=== PATIENT | female | born 1990 | race Caucasian/White ===

== ENCOUNTER 2020-07-03 14:00 | Outpatient (RCR) | payer MEDICAID, SELFPAY ==
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
--- NOTE | 2020-07-03 14:40 | BH.MDN_ITS ---
Multi-Disciplinary Note - Note 60-min Individual Time Started:: 14:00 Date: 07/03/20 Purpose of session/treatment goals addressed:: The purpose of this session was to gather information on client's current stressors, symptoms, and treatment goals. Another goal was to build rapport and provide psychoeducation. Symptoms/Behavior:: This counseling session was provided via telehealth using two-way, real-time interactive telecommunication technology between the patient and the clinician. The interactive telecommunication technology included audio and video. The patient was offered telehealth as an option for care delivery du ring the COVID-19 pandemic and consented to this option. Patient location: [place]. Provider located at [facility] Eye Contact:: Good - tearful at times throughout Motor Activity:: Appropriate Appearance:: Disheveled, Casual Speech:: Appropriate Mood:: Anxious, Depressed Affect:: Congruent Thoughts:: Linear, Logical, No evidence of hallucinations/delusions noted Staff Interventions:: Therapist used active listening and open-ended questions to explore client's current stressors, symptoms, mh treatment history, and explore treatment goals. Therapist used strengths based approaches to build rapport and provide emotional support. Therapist provided psychoeducation on how intrusive thoughts can impact mental health sx. Therapist gave client encouragement and normalized the impact of mental health has on daily functioning. Client Response:: Client responded well to session, open to meeting with therapist and discussing mental health symptoms and stressors leading to IOP admission. Client stated she referred herself to the program as a result of increased symptoms of anxiety and depression, as well as experiencing an increase in frequency and intensity of visual, auditory, and tactile hallucinations. Notes the hallucinations are not command in nature but often impede her ability to function at baseline as she can focus on nothing else when experiencing them. Shared having a previous diagnosis of schizophrenia but is unsure as to the validity of this diagnosis and would like to have the program psychiatrist further assess. 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 Noted she had been fired because she was experiencing seizures at work and was unable to perform the duties of her job as a result. Expressed her seizures have been steadily worsening as she continues to struggle with increased anxiety and stress. Client notes that her current symptoms include her mother?s health, the loss of her job, finances, and the upcoming anniversary of her grandfather?s . At time of session, client identified current symptoms to include feeling depressed with occasional hopelessness, isolation, no motivation, decreased sleep, low energy, decreased concentration, feeling guilty, passive thoughts that she would not care if she , increased hallucinations, increased rumination, daily panic attacks, and PTSD sx. Client reported inability to complete ADLs and take care of herself at her baseline since the increase in sx. Client identified her treatment goals to be: deal with symptoms, improve daily functioning, improve independence Risks/Concerns:: Client reports passive thoughts of though denies any active suicidal ideations, plan, and intent as of 07/03/20. Protective factors include family, children, and goals for her future. Reports motivation to get better. Progress Toward Goals/Plan:: Client's first week of IOP, reports she is trying to be more comfortable in the treatment environment. She reports enjoying group so far and is hopeful that she will be able to engage more as she spends more ti me in the group setting and is able to better manage hallucinations which impact ability to focus. Client endorses a depressed mood, anhedonia, decreased sleep, low self-esteem, ruminations, hallucination, and constantly feeling anxious. Client's symptoms have been impacting her ability to function at baseline, complete daily tasks and responsibilities, and ability to engage with others. Will continue IOP tx to prevent decompensation, reduce intensity of symptoms, and improve daily functioning. Time Stopped:: 15:14
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
--- NOTE | 2020-07-04 11:15 | BH.SGPN.GN ---
This psychotherapy group was provided via telehealth using two-way, real-time interactive telecommunication technology between the patients and the provider.?The interactive telecommunication technology included audio and video.? ?The patient was offered telemedicine as an option for care delivery during the COVID-19 pandemic and consented to this option. ?Patient location: [place] ?Provider located at [facility] Behaviors/Verbalizations/Mental Status: []Client alert and oriented, neatly dressed and groomed. Eye contact good. Motor activity appropriate. Speech within normal limits. Affect flat and tearful, mood anxious and depressed. Thoughts linear, logical, no signs of hallucinations or delusions. Client Response/Progress/Benefit: []Client responded well to session, connecting with the topic and engaged in discussion. Client attentive during psychoeducation on the change process and able to identify different emotions in each stage of change. Client identified a change she would like to make to improve her mental health which was to ?accepting myself and know I have stuff to work on.? Client shared she wants to work on this as client believes it will reduce depression and self-judgement. Client reports belief she is currently in the action stage because client has reached out for help to better understand her mental health diagnosis. Client shared the barrier to acceptance will be negative self-talk. Client?s goal today is to say at least one positive affirmation to combat negative self-talk. Appeared to benefit from identifying what stage of change client is in and setting a small goal to promote that change. First week of IOP tx. Will continue IOP to prevent decompensation, maintain safety, and increase self-compassion. Narrative Note: []
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
--- NOTE | 2020-07-04 13:18 | BH.DR.ITP ---
Initial Treatment Plan - Patient Information Visit Information: ADMISSION DATE: EXPECTED LOS: 4-6 weeks - Problems/Symptoms Problem #1:: Depression Symptom:: Sadness, anhedonia, apathy, decreased energy, decreased concentration, passive thoughts of Problem #2:: Anxiety Symptom:: Worry, panic attacks, obsessions Problem #3:: Hallucinations Symptom:: Auditory , tactile hallucinations
--- NOTE | 2020-07-05 09:05 | BH.SGPN.GN ---
This psychotherapy group was provided via telehealth using two-way, real-time interactive telecommunication technology between the patients and the provider. The interactive telecommunication technology included audio and video. The patient was offered telemedicine as an option for care delivery during the COVID-19 pandemic and consented to this option. Patient location: [place] Provider located at [facility] Behaviors/Verbalizations/Mental Status: []Client alert and oriented, casual dress, hygiene tended to. Eye contact good. Motor activity appropriate. Speech within normal limits. Affect constricted, mood anxious. Thoughts linear, logical, no signs of hallucinations or delusions. Reviewed client?s symptom tracker, pt denies current suicidal thoughts or intention to date. Client Response/Progress/Benefit: []Client responded well to session, attentive and contributing to discussion. Client reports feeling anxious this morning. Client shared she has a dentist appointment and the dentist is historically a trigger for client. Client identified coping skills she can use to manage anxiety prior to her appointment which included: deep breathing, counting, and visualizations. Client stated she is also working on picking and choosing her battles and sitting with uncomfortable feelings. Appeared to benefit from reviewing healthy coping skills and giving herself credit. Will continue IOP tx to prevent decompensation, reduce negative self-talk, and improve emotional regulation skills. Narrative Note: []
--- NOTE | 2020-07-05 10:20 | BH.SGPN.GN ---
This psychotherapy group was provided via telehealth using two-way, real-time interactive telecommunication technology between the patients and the provider. The interactive telecommunication technology included audio and video. The patient was offered telemedicine as an option for care delivery during the COVID-19 pandemic and consented to this option. Patient location: [place] Provider located at [facility] Behaviors/Verbalizations/Mental Status: []Client alert and oriented, casually dressed. Eye contact good. Motor activity appropriate. Speech within normal limits. Affect congruent, mood anxious. Thoughts linear, logical, no signs of hallucinations or delusions. Client Response/Progress/Benefit: []Client responded well to group and actively engaged throughout the session. Client provided input as the group brainstormed positive and negative aspects of stress on physical and mental health. Client agreed with the session?s quote and stated that it is difficult to know which coping skills to use when stress occurs. Client noted that habits, lack of awareness, learned behavior, and environment are barriers to impacting our ability to cope with stress. Client identified her current stressors as election/media, decreased sleep and mental health, finances, family, physical health, transportation, medications, isolation and loneliness, and lack of self-acceptance. Progress was noted as client understood that coping skills are impacted from levels of stress. Client will continue IOP to prevent decompensation, reduce isolation, and improve daily functioning. Narrative Note: []
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
--- NOTE | 2020-07-09 10:15 | BH.SGPN.GN ---
This psychotherapy group was provided via telehealth using two-way, real-time interactive telecommunication technology between the patients and the provider. The interactive telecommunication technology included audio and video. The patient was offered telemedicine as an option for care delivery during the COVID-19 pandemic and consented to this option. Patient location: [place] Provider located at [facility] Behaviors/Verbalizations/Mental Status: []Client alert and oriented, casually dressed. Eye contact fair. Motor activity appropriate. Speech within normal limits. Affect flat, mood dysthymic. Thoughts linear, logical, no signs of hallucinations or delusions. Client Response/Progress/Benefit: []Client engaged throughout session AEB participating in worksheet activity and frequently nodding during discussion. Connected with discussion on how coping with external crises by using unhealthy coping skills could result in a personal crisis. Group reported that it is important to have awareness of warning signs which can prevent reaching crisis point. Group identified warning signs for crisis and client completed the personal warning signs worksheet. Client identified personal crisis warning signs to include: racing thoughts, loss of interest, and lack of motivation. Client reported another warning sign for her is catastrophizing thinking and ?my problems compounding.? Benefited by increasing awareness of crisis and personal warning signs. Progress noted in client?s consistent attendance. Will continue IOP tx to prevent decompensation, increase emotional regulation skills, and reduce negative thinking. Narrative Note: []
--- NOTE | 2020-07-09 12:00 | PCM.BH.PN_ITS ---
Progress Note Progress Note: History of Present Illness/Interim History: [] Patient is a 29-year-old female who is seen in follow-up at the [facility] behavioral health IOP program. She has a history of schizophrenia, OCD and depression. Last week I increased her Zyprexa dose up to 5 mg daily. The patient said says that she is tolerating the increase in Zyprexa well. She feels that she is improving slowly. She has much less anxiety now since increasing the Zyprexa. She was having panic attacks several times a day and that has decreased now to only 3 panic attacks in the last week. Her hallucination of voices and visual however have stayed the same. She does still admit to being somewhat depressed and having passive thoughts that she would not care if she . She denies active suicidal ideation or plan for suicide. She denies homicidal ideation. Her related hallucinations remain the same which involve tactile hallucinations of bugs on her skin, auditory hallucinations of people talking outside her window at night and occasional visible visual hallucinations of her father at night. Current Psychiatric Medications: [] Zyprexa 5 mg p.o. nightly (increased to 5 mg 1 week ago); Klonopin 0.5 mg p.o. 3 times daily; Tegretol 100 mg p.o. twice daily; Prozac 20 mg p.o. daily; propranolol 10 mg p.o. 3 times daily. Mental Status Examination: [] Patient is seen by telehealth and is casually dressed and groomed with good hygiene. She has no psychomotor agitation or retardation. She is somewhat depressed with tears at times. Speech is normal rate and rhythm and fluent with no pressure. Eye contact is good. Thought processes organized and goal-directed. Thought content: There is evidence of longstanding mostly auditory hallucinations and tactile hallucination of bugs on her skin. No evidence of suicidal or homicidal ideation or plan. There is evidence of passive thoughts that she would not care if she . Judgment is intact. Insight: Improving. Impulsivity: Moderate. Diagnoses: [] Orient I: [] Schizophrenia; OCD; major depressive disorder, recurrent, severe wi thout psychosis; PTSD; THC use disorder; history of polysubstance abuse; rule out pseudoseizure versus epileptic seizure Orient II: [] Borderline traits Orient III: [] See above Orient IV:[]] Primary support, work and financial issues. Plan: [] The patient will continue the IOP program at [facility] as the structure, support, education, individual and group therapy will hopefully prevent worsening of her symptoms which might require hospitalization. The risks, options, possible complications and side effects of the medication were discussed again with the patient and she understands and accepts these. She felt safe during the interview and if at any time she does not feel safe she will let us know or go to the emergency room. The patient agrees to increase her Zyprexa to 7.5 mg total p.o. nightly daily. She understands that this medicine will help her anxiety and hopefully decrease her hallucinations. I will see the patient in follow-up in 1 to 2 weeks. She will also continue to follow-up with her outpatient providers.
--- NOTE | 2020-07-11 09:05 | BH.SGPN.GN ---
This psychotherapy group was provided via telehealth using two-way, real-time interactive telecommunication technology between the patients and the provider. The interactive telecommunication technology included audio and video. The patient was offered telemedicine as an option for care delivery during the COVID-19 pandemic and consented to this option. Patient location: [place] Provider located at [facility] Behaviors/Verbalizations/Mental Status: [] Client alert and oriented, casually dressed and groomed. Eye contact good. Motor activity appropriate. Speech within normal limits. Affect congruent, mood dysthymic and anxious. Thoughts linear, logical, no signs of hallucinations or delusions. Reviewed client?s symptom tracker, no risk for suicidal ideation, plan, or intent as of 07/11/20. Client Response/Progress/Benefit: [] Pt responded well to session, actively listening throughout and openly processed with group. Pt reports feeling a rollercoaster of emotions this morning. Indicated this is due to ongoing issues regarding stress related seizures in which pt has been struggling to accept are not due to an underlying physical issue. Discussed that she has been working to remind herself that just because the seizures are not due to a medical condition, it does not mean she caused them. Expressed practicing self-compassion in moments in which she is struggling and reminding herself that continuing to work on her mental health needs will not only help her improve mentally but could also improve her physical health as well. Did well to identify current positives which include: taking steps to work on improving her use of positive self-talk, as well as being willing to schedule a sleep schedule despite anxiety in doing so. Client appeared to benefit from connecting with peers and reframing thoughts. Pt recommended continued IOP tx to further improve emotion regulation, thought challenging, and self-care skills, as well as maintain stability. Narrative Note: []
--- NOTE | 2020-07-11 11:18 | BH.SGPN.GN ---
This psychotherapy group was provided via telehealth using two-way, real-time interactive telecommunication technology between the patients and the provider. The interactive telecommunication technology included audio and video. The patient was offered telemedicine as an option for care delivery during the COVID-19 pandemic and consented to this option. Patient location: [place] Provider located at [facility] Behaviors/Verbalizations/Mental Status: []Client alert and oriented, casual appearance. Eye contact good. Motor activity appropriate. Speech within normal limits. Affect constricted-tearful, mood anxious and dysthymic. Thoughts linear, logical, no signs of hallucinations or delusions. Client Response/Progress/Benefit: []Client responded well to session, participating during the group activity and willing to complete the worksheet. Client completed the fear of failure worksheet and reported that fear of failure has kept client from living her life to the fullest, being more successful, and ?reaching my full potential.? Client able to identify barriers that reinforce fear of failure which included: negative core beliefs, not feeling deserving of success, and unrealistic expectations. Client attentive during discussion of the different strategies to help overcome fear of failure. Client selected the strategies of reminding herself that everyone has setbacks and positive self-talk. Client appeared to benefit from learning ways to overcome fear of failure. Progress noted in client?s high engagement in group sessions. Will continue IOP tx to reduce intensity of symptoms and improve daily functioning. Narrative Note: []
--- NOTE | 2020-07-12 11:22 | BH.SGPN.GN ---
This psychotherapy group was provided via telehealth using two-way, real-time interactive telecommunication technology between the patients and the provider. The interactive telecommunication technology included audio and video. The patient was offered telemedicine as an option for care delivery during the COVID-19 pandemic and consented to this option. Patient location: [place] Provider located at [facility] Behaviors/Verbalizations/Mental Status: [] Client alert and orient. Appearance casual, and appropriately groomed. Speech an appropriate rate and tone Motor activity WNL. Mood dysthymic, anxious affect unable to determine as client wearing mask per COVID-19 protocol. No evidence of delusion or hallucinations.? Client Response/Progress/Benefit: [] Client an active participant throughout, did well to provide input and supportive feedback, as well as make personal connections with materials discussed. Provided personal examples at various points throughout. Client engaged in group discussion continuing to define the different cognitive distortions and ways in which each distorted thought pattern may impact mental health progress. Client attentive during psychoeducation on T.H.I.N.K. (True, Helpful, Important, Necessary, Kind) acronym as a strategy for identifying and challenging distorted thought patterns. Indicated she often struggles with catastrophizing and absolute thought patterns which have resulted in negative self-talk and reinforcing feelings of shame. Expressed she would like to begin asking herself ?Is this thought kind?? to reduce self-deprecation. Appeared to benefit from increasing insight into distorted thinking patterns, the impacts they have on mental health, and identifying possible strategies for beginning to reduce negative thoughts. Progress noted in client report of improved application of mindfulness and self-compassion components. Recommended continued IOP tx to improve mood stability, promote healthy change behaviors, and prevent decompensation. Narrative Note: []
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
--- NOTE | 2020-07-16 09:00 | BH.SGPN.GN ---
This psychotherapy group was provided via telehealth using two-way, real-time interactive telecommunication technology between the patients and the provider. The interactive telecommunication technology included audio and video. The patient was offered telemedicine as an option for care delivery during the COVID-19 pandemic and consented to this option. Patient location: [place] Provider located at [facility] Behaviors/Verbalizations/Mental Status: []Client alert and oriented, casually dressed. Eye contact good. Motor activity appropriate. Speech within normal limits. Affect congruent- tearful, mood anxious. Thoughts linear, logical, no signs of hallucinations or delusions. Reviewed client?s symptom tracker, no risk or plan for suicide ideation as of 07/16/20. Client Response/Progress/Benefit: [] Client responded well to session, as client engaged and participated throughout group. Client shared feeling tired as she stopped taking her sleeping medication and is trying to find other healthy skills to help induce sleeping patterns. Client also shared a positive as she reached out to an old friend that she has not spoken to in years. Client recognized that group has helped client ?reacclimate into society? as she has isolated herself for years. Client shared how using opposite action and giving self credit have been healthy coping skills to decrease depressive symptoms. Client benefited from group as she was open and vulnerable as discussing stressors. Client will continue to improve mood and decrease depressive symptoms. Narrative Note: []
--- NOTE | 2020-07-16 11:15 | BH.SGPN.GN ---
Behaviors/Verbalizations/Mental Status: [] Client alert and oriented, casually dressed and appropriately groomed. Eye contact good. Motor activity appropriate. Speech within normal limits. Affect congruent. mood euthymic and anxious. Thoughts linear, logical, no signs of hallucinations or delusions. Client Response/Progress/Benefit: [] Client engaged in session AEB client taking notes, providing input, and completing the Zones of Regulation worksheet. Attentively listening and contributing during psychoeducation on 4 zones of regulation and able to identify feelings and behaviors for each zone. Client reported feeling she is currently in between the red and yellow zones. Discussing that upon admission to IOP she was in the red zone but has begun to stabilize and is more often falling into the yellow zone of regulation. Group identified coping skills one can use to support self in each zone. Client reported she will practice more actively using skills of self-care, mindfulness, and reaching out to both supports and therapeutic resources to continue to make progress towards the green zone and preventing return to the red zone. Benefited from increased education on zones of regulation or stages of alertness for emotions and healthy coping skills to use for each zone. Progress in client self-report of improved ability to challenge distorted thoughts, better communicate with supports, and improved self-care; however, continues to struggle with significant anxiety and distress tolerance skills. Will continue IOP tx to continue use of healthy coping skills, challenge negative thought patterns, maintain stability, and prevent decompensation. Narrative Note: []
--- NOTE | 2020-07-18 09:00 | BH.SGPN.GN ---
This psychotherapy group was provided via telehealth using two-way, real-time interactive telecommunication technology between the patients and the provider. The interactive telecommunication technology included audio and video. The patient was offered telemedicine as an option for care delivery during the COVID-19 pandemic and consented to this option. Patient location: [place] Provider located at [facility] Behaviors/Verbalizations/Mental Status: []Client alert and oriented, casually dressed and appropriately groomed. Eye contact fair. Motor activity appropriate. Speech within normal limits. Affect congruent, mood depressed and anxious. Thoughts linear, logical, no signs of hallucinations or delusions. Client Response/Progress/Benefit: []Pt engaged participant AEB pt listening attentively to others and sharing thoughts and feelings. Pt reported she is struggling today. Pt stated she found out yesterday that her mom has early onset alzheimer's. Pt stated her mom is her biggest support because doesn't have other friends. Pt stated she also found out one of her aunts recently . Pt reported she wasn't very close to this aunt but the loss has brought up memories from past lose. Pt stated a positive is showing up to IOP today. Pt reported she wanted to cancel but knew it wouldn't be healthy for her to ruminate by herself. Pt seemed to benefit from support from peers. pt to continue IOP to increase healthy coping, improve daily functioning and prevent decompensation. Narrative Note: []
--- NOTE | 2020-07-18 10:03 | BH.SGPN.GN ---
This psychotherapy group was provided via telehealth using two-way, real-time interactive telecommunication technology between the patients and the provider. The interactive telecommunication technology included audio and video. The patient was offered telemedicine as an option for care delivery during the COVID-19 pandemic and consented to this option. Patient location: [place] Provider located at [facility] Behaviors/Verbalizations/Mental Status: []Client alert and oriented, casually dressed. Eye contact good. Motor activity appropriate. Speech within normal limits. Affect congruent. Mood depressed and anxious. Thoughts linear, logical, no indication of hallucinations or delusions. Client Response/Progress/Benefit: []Pt remained an active participant throughout session AEB pt providing input to discussion, taking notes, and willing to complete worksheet. Group discussed impacts of anger on mental health and identified triggers of anger to include: feeling disrespected by others, feeling overwhelmed/stressed, high expectations of self, anxiety, grief, and feeling out of control. Pt shared connecting with anger stemming from stress and basic needs not being met like hunger. Shared her emotions underlying anger include: exhaustion, feeling overwhelmed, and feeling insecure. Group discussed common ways anger is expressed and Pt identified the following ways she expresses anger: sarcasm, crying, and getting ?snappy? with others. Pt seemed to benefit from increased awareness of how unmanaged anger can impact self and others. Progress noted in pt self-report of improved communication with supports and mindfulness, though continues to struggle with consistent skill application, stress management, and distorted thinking impacting progress. Pt to continue IOP to increase ability to challenge thoughts, increase internal healthy coping skills, and prevent decompensation. Narrative Note: []
--- NOTE | 2020-07-18 14:23 | BH.MDN ---
Multi-Disciplinary Note - Note 45-min Individual Time Started:: 11:08 Date: 07/18/20 Purpose of session/treatment goals addressed:: The purpose of this session was to aid client in processing recent emotional triggers and stressors currently impacting her mental health and ability to function at baseline. Another purpose was to review the importance of self-compassion and develop a self-care plan for the evening to prevent further symptom escalation. Symptoms/Behavior:: This counseling session was provided via telehealth using two-way, real-time interactive telecommunication technology between the patient and the clinician. The interactive telecommunication technology included audio and video. The patient was offered telehealth as an option for care delivery during the COVID-19 pandemic and consented to this option. Patient location: [place]. Provider located at [facility] Eye Contact:: Good Motor Activity:: Appropriate Appearance:: Disheveled, Casual Speech:: Appropriate Mood:: Anxious, Depressed Affect:: Congruent Thoughts:: Linear, Logical, No evidence of hallucinations/delusions noted Staff Interventions:: Therapist used active listening and emotional support while client discussed recent stressors. Therapist reviewed self-compassion as discussed in prior session and worked with client to combat use of distortions. Therapist provided psychoeducation on emotional triggers, stress management, and trauma. Therapist helped client explore personal emotional triggers impacting her ability to cope with current stressors. Discussed with client the importance of self-care in stress management and aided client in identifying self-care and self-soothing strategies she could implement this afternoon. Client Response:: Client responded well to session, open to meeting with therapist. Client reports that yesterday had been ?rough? as she had received difficult news. Noted that she had been informed by a family member that her aunt had . Client discussed feeling conflicted and scared as she would like to go to the but does not have a positive relationship with that side of the family. Shared that several of her family members are trauma triggers and that she feels that attending may lead to further regression of her mental health; however, noted concern that not attending would result in increased guilt and auditory hallucinations. Explained that she has experienced increased hallucinations in the past when not attending another family member?s . Client did well to complete a cost-benefit analysis and expressed that it would ultimately be worse for her mental health to attend the services. Went on to indicate that although her aunt?s is a stressor she is more worried about discovering yesterday that her mother has been diagnosed with early onset Alzheimer?s. Shared that her mother is her primary support and that she and her are often the one?s who ?hold the rest of the family together?. Discussed feeling fearful of losing this relationship, having to take on additional caregiving responsibilities, and no longer having support with the family. Client tearful throughout and discussed that she has been so overwhelmed she has not been able to sleep or eat properly. Expressed additionally struggling with crying spells since receiving the news and feeling she is not able to be there for her children as a result. Receptive of discussion reviewing self-compassion, specifically identifying the common humanity of her current stressor. Able to acknowledge that she would not expect anyone else to ?have it all together? should they be facing the same stressors. Worked with therapist to create a self-care plan for the afternoon to ensure her basic needs are being met, give herself a chance to regulate, and prevent current stressors from escalating to point of crisis. Risks/Concerns:: Client denies any suicidal ideations, plan, or intent as of 07/18/20. Progress Toward Goals/Plan:: Some regression noted. Client reports significant difficulties in regulating her emotions and managing anxious thoughts since recieving difficult news of her mother's health. Expressed isolating, experiencing crying spells, and ruminations which have prevented sleep in the last day. Client did well to identify importance of self-care in reducing sx and making tx progress. Willing to create self-care plan. Client continues to be receptive to learning new coping skills and has been consistent thus far with individual and group homework. Will continue IOP tx to prevent decompensation, increase emotional regulation skills, and improve daily functioning. Time Stopped:: 11:51
--- NOTE | 2020-07-19 09:00 | BH.SGPN.GN ---
This psychotherapy group was provided via telehealth using two-way, real-time interactive telecommunication technology between the patients and the provider. The interactive telecommunication technology included audio and video. The patient was offered telemedicine as an option for care delivery during the COVID-19 pandemic and consented to this option. Patient location: [place] Provider located at [facility] Behaviors/Verbalizations/Mental Status: []Client alert and oriented, casually dressed. Eye contact good. Motor activity appropriate. Speech within normal limits. Affect congruent, mood dysthymic. Thoughts linear, logical, no signs of hallucinations or delusions. Reviewed client?s symptom tracker, no risk or plan for suicide ideation as of 07/19/20. Client Response/Progress/Benefit: []Client was cooperative and responded well to group. Client engaged and participated throughout group discussion. Client was tearful as she stated that she took three steps back in her treatment last night, as she began smoking, picked her cuticles, and overdrafted her bank account from compulsively shopping. Client stated feeling ?scattered and ashamed? of her actions. Group members helped client identify positives and challenge her negative thoughts. Client shared her plan for today is to focus on her anniversary today and take a nap for self-care. Client benefited from group today as client opened up to group and was vulnerable about discussing her experiences. Client will continue IOP to learn healthy coping skills and decrease depressive symptoms. Narrative Note: []
--- NOTE | 2020-07-19 10:20 | BH.SGPN.GN ---
This psychotherapy group was provided via telehealth using two-way, real-time interactive telecommunication technology between the patients and the provider. The interactive telecommunication technology included audio and video. The patient was offered telemedicine as an option for care delivery during the COVID-19 pandemic and consented to this option. Patient location: [place] Provider located at [facility] Behaviors/Verbalizations/Mental Status: []Client alert and oriented, casually dressed and appropriately groomed. Eye contact fair. Motor activity appropriate. Speech within normal limits. Affect constricted, mood depressed. Thoughts linear, logical, no signs of hallucinations or delusions. Client Response/Progress/Benefit: []Client appeared engaged during session AEB client providing input throughout discussion and listened attentively to others. Client worked with peers on defining goals and brainstormed with the group the benefits of goal setting. Client helped group discuss the barriers that keep people from either setting goals are following through with goals. Client stated I am my biggest critic. Client elaborated that she often things others are judging her when impacts her setting goals in the first place. Client able to provide feedback during psychoeducation on SMART goals. Client appeared to benefit from learning the mental health benefits of setting goals that are SMART. Will continue IOP tx increase healthy coping, improve emotional regulation and prevent decompensation. Narrative Note: []
--- NOTE | 2020-07-19 11:15 | BH.SGPN.GN ---
This psychotherapy group was provided via telehealth using two-way, real-time interactive telecommunication technology between the patients and the provider.?The interactive telecommunication technology included audio and video.? ?The patient was offered telemedicine as an option for care delivery during the COVID-19 pandemic and consented to this option. ?Patient location: [place] ?Provider located at [facility] Behaviors/Verbalizations/Mental Status: []Eye contact is good. Motor activity is appropriate. Appearance is neat. Speech is Appropriate. Mood is anxious, and depressed. Affect is flat. Thoughts are linear and logical. No evidence of psychosis Client Response/Progress/Benefit: []Client was engaged during discussion, did well to complete activity and process with the group. Client was willing to complete the worksheet in which she was challenged to develop a personal SMART goal. Client chose the goal; to not buy another pack of cigarettes for week and to buy a fidget spinner. When asked why this goal was important and beneficial to client's mental health, she stated this will help client?s physical health and family?s health. Client identified her barriers which included: stress, convenience, and wanting to do it out of spite. Client receptive to identifying solutions for these barriers and willing to begin working on this goal. Benefited from this group by developing a short-term SMART goal related to mental health. Will continue IOP tx to prevent decompensation, improve daily functioning, and continue to promote healthy change behaviors. Narrative Note: []
== END 2020-07-28 23:59 ==
LOC: BHIOP 14:00
PROVIDERS: Referring Provider Psychiatry & Neurology Psychiatry; Visit Provider Psychiatry & Neurology Psychiatry
DX: F20.9 Schizophrenia, unspecified (principal); F33.2 Major depressive disorder, recurrent severe without psychotic features; F42.9 Obsessive-compulsive disorder, unspecified; F43.10 Post-traumatic stress disorder, unspecified; F12.90 Cannabis use, unspecified, uncomplicated; Z87.891 Personal history of nicotine dependence; Z79.899 Other long term (current) drug therapy; F14.11 Cocaine abuse, in remission
CPT/HCPCS: 90792; 99214; H0035; H2012; H2020; T1002; 90832; 90834

== ENCOUNTER 2020-07-31 09:00 | Outpatient (RCR) | payer MEDICAID, SELFPAY ==
--- NOTE | 2020-07-31 09:05 | BH.SGPN.GN ---
This psychotherapy group was provided via telehealth using two-way, real-time interactive telecommunication technology between the patients and the provider.?The interactive telecommunication technology included audio and video.? ?The patient was offered telemedicine as an option for care delivery during the COVID-19 pandemic and consented to this option. ?Patient location: [place] ?Provider located at [facility] Behaviors/Verbalizations/Mental Status: []Client alert and oriented, neatly dressed and groomed. Eye contact good. Motor activity appropriate. Speech within normal limits-hard to hear client at times due to poor internet connection. Affect congruent-tearful, mood frustrated and depressed. Thoughts linear, logical, no signs of hallucinations or delusions. Reviewed client?s symptom tracker, no risk for suicidal ideation, plan, or intent as of 07/31/20. Client Response/Progress/Benefit: []Client responded well to session, receptive to emotional support and thought challenging from the group. Client reports feeling enraged this morning due to self-blame. Client reported she was given the diagnosis of conversion disorder and now client feels like I'm crazy. Client stated she is frustrated with herself for continuing to struggle with trauma that occurred during childhood. [employer] and peers helped client challenge distortions and self-blaming thoughts. Client was receptive and smiling from the feedback. Appeared to benefit from emotional support and thought challenging. Will continue IOP tx to prevent decompensation, reduce self-depreciation, and improve daily functioning. Narrative Note: []
--- NOTE | 2020-07-31 11:19 | BH.SGPN.GN ---
This psychotherapy group was provided via telehealth using two-way, real-time interactive telecommunication technology between the patients and the provider. The interactive telecommunication technology included audio and video. The patient was offered telemedicine as an option for care delivery during the COVID-19 pandemic and consented to this option. Patient location: [place] Provider located at [facility] Behaviors/Verbalizations/Mental Status: []Client alert and oriented, casual dress, hygiene tended to. Eye contact fair to good. Motor activity appropriate. speech and tone WNL. Affect constricted. mood anxious, depressed. Thoughts linear, logical, no signs of hallucinations or delusions. Client Response/Progress/Benefit: []Client engaged in session AEB listening to discussion, at times providing some limited input, and taking notes throughout. Client identified shame, avoidance, not asking for help, guilt, and negative and distorted thoughts are behaviors she engages in that keeps her stuck from moving forward. Client attentive during psychoeducation about problem solving protocol. Client did well to work with the group to brainstorm strategies to promote making progress towards their desired chapter. Identified wanting to work on addressing current barrier of negative thoughts which reinforce self-hate. Shared one thing she can do to move forward is to increase her knowledge on mental health to better understand her own diagnosis and reframe fixed thoughts reinforcing shame and self-blame. Appeared to benefit from increased insight regarding her current ?Chapter? in life and reviewing strategies for promoting continued progress and prevent regression, though continues to struggle with significant negative core beliefs reinforcing depression. Will continue IOP tx to prevent decompensation, challenge distorted thoughts and increase healthy coping. Narrative Note: []
--- NOTE | 2020-07-31 14:19 | BH.MDN ---
Multi-Disciplinary Note - Note 45-min Individual Time Started:: 12:15 Date: 07/31/20 Purpose of session/treatment goals addressed:: The purpose of this session was to address client's treatment plan goal #1 objective #2 and treatment goal #2 objective # 2. Symptoms/Behavior:: This counseling session was provided via telehealth using two-way, real-time interactive telecommunication technology between the patient and the clinician. The interactive telecommunication technology included audio and video. The patient was offered telehealth as an option for care delivery during the COVID-19 pandemic and consented to this option. Patient location: [place]. Provider located at [facility] Eye Contact:: Good - tearful throughout Motor Activity:: Appropriate Appearance:: Casual Speech:: Appropriate Mood:: Anxious, Depressed Affect:: Congruent Thoughts:: Linear, Logical, No evidence of hallucinations/delusions noted Staff Interventions:: Therapist used active listening and open-ended questions to explore client's current symptoms and stressors, as well as continued application of coping skills. Therapist provided supportive feedback and empathic responses as client shared struggling with intrusive thoughts and distortions. Used CBT components of Cognitive restructuring to begin identifying, challenging, and reframing distortions reinforcing guilt and depressive sx. Client Response:: Client receptive of session, open to meeting with therapist. Reports that she has been struggling to accept that some of her physical symptoms may be psychosomatic since meeting with several neurologists who have suggested that her seizures are ?pseudo-seizures?. She noted that this has led to an increase in negative self-talk and feeling ?that I just need to stop it and get over it?. Responded well to discussion on self-compassion and reviewed strategies for better managing her anxiety in order to reduce severity of physical symptoms. Client expressed physical sx are often worse when feeling more anxious or stressed and noted that positive affirmations and tracking small accomplishments daily may aid in reducing self-criticism. Went on to discuss additional struggles with self-deprecating language when thinking about her past. Noted ?hating? herself for the mistakes she feels she made years ago. Able to identify that ruminating on these mistakes and associated thoughts continues to reinforce feelings of guilt and resentment towards self. Did well to work with therapist on identifying and reframing specific distortions. Identified often having the thought ?I should?ve known better?. Client challenged this by recognizing that she would not expect someone else to have ?known better? at the age she was when these past experiences occurred and noted ?I did the best I could with what I knew at the time. With some guidance, client was able to replace negative thoughts with more compassionate and self-forgiving statements. Willing to continue working on identifying and challenging distortions that reinforce feelings of guilt as homework. Risks/Concerns:: Client reports passive thoughts of ?I?d be better off not being here?. Working to challenge these thoughts and denies any active suicidal ideations, plan, or intent as of 07/31/20. Continues to report hallucinations though continues to note an improved ability to manage these. Denies they are command in nature. Client reports her family and goals for her future as major protective factors. Progress Toward Goals/Plan:: Some progress noted. Client reports struggling with significant distorted thoughts impacting her self-esteem and reinforcing sx of depression. She reports knowing these thoughts are unhealthy and was willing to work with therapist on challenging and replacing identified distorted thoughts. Continues to report anxiety daily but feels she is improving in her overall ability to apply calming skills for managing anxious sx in the moment. Client will continue IOP tx to continue to promote skill application and improve daily functioning, reduce negative self-talk, and reduce mental health symptoms. Time Stopped:: 12:55
--- NOTE | 2020-08-01 09:00 | BH.SGPN.GN ---
This psychotherapy group was provided via telehealth using two-way, real-time interactive telecommunication technology between the patients and the provider. The interactive telecommunication technology included audio and video. The patient was offered telemedicine as an option for care delivery during the COVID-19 pandemic and consented to this option. Patient location: [place] Provider located at [facility] Behaviors/Verbalizations/Mental Status: []Client alert and oriented, casually dressed and groomed. Eye contact good. Motor activity WNL. Speech within normal limits. Affect congruent, mood anxious and euthymic. Thoughts linear, logical, no signs of hallucinations or delusions. Reviewed client?s symptom tracker, no risk for suicidal ideation, plan, or intent as of 08/01/20. Client Response/Progress/Benefit: []Pt responded well to session, actively listening throughout and openly processed with group. Pt reports feeling ?better than yesterday this morning which she attributed to spending time engaging with her daughter and this morning. Shared trying to be more engaged in the present moment has helped with reducing rumination and negative thoughts. Did well to identify current mental health wins which included creating a list of ?personal wins? or things she deserves credit for to begin using when recognizing negative self-talk. Additional win noted as scheduling time for self-care this afternoon as she has plans to get her hair done. Pt indicated this as progress as she has struggled to engage is self-care activities in the past. Appeared to benefit from group support and structure. Pt continues to struggle with self-deprecation and inconsistent use of coping skills. Recommended continued IOP tx to further continue to promote healthy change behaviors and self-care skills, as well as prevent decompensation. Narrative Note: []
--- NOTE | 2020-08-01 10:17 | BH.SGPN.GN ---
This psychotherapy group was provided via telehealth using two-way, real-time interactive telecommunication technology between the patients and the provider.?The interactive telecommunication technology included audio and video.? ?The patient was offered telemedicine as an option for care delivery during the COVID-19 pandemic and consented to this option. ?Patient location: [place] ?Provider located at [facility] Behaviors/Verbalizations/Mental Status: []Client alert and oriented, casually dressed and groomed. Eye contact good. Motor activity appropriate. Speech within normal limits. Affect constricted, mood dysthymic. Thoughts linear, logical, no signs of hallucinations or delusions. Client Response/Progress/Benefit: []Client an active participant during group AEB client contributing input to discussion, able to make connections throughout. Client agreed with group that it is important to have a variety of social supports. Group identified benefits of social support as not feeling alone, gaining different perspectives, and increased self-esteem. Client also helped group identify barriers to using support and shared client has personally struggled with feeling embarrassed about her mental health. Client stated this has kept client from asking for help in the past. Appeared to benefit from gaining awareness of barriers that keep people from seeking social support as well as identifying the benefits of increasing support. Client progress noted AEB report of sitting with uncomfortable feelings rather than avoiding. Will continue IOP tx as client can further improve mood stability and reduce distorted thinking. Narrative Note: []
--- NOTE | 2020-08-01 12:18 | PCM.BH.PN ---
Progress Note Progress Note: History of Present Illness/Interim History: [] The patient is a 29-year-old female who is seen in follow-up at the [facility] behavioral health program. I last saw the patient 3 weeks ago and at that time I increased the Zyprexa to 7.5 mg p.o. nightly. The patient in addition was seen at the [facility] and had a sleep study and had a work-up to rule out epileptic seizures. The patient says that she was told that her seizures were noneleptogenic seizures and they gave her a diagnosis of conversion disorder. The patient has been getting down on herself about the diagnosis of conversion disorder. Discussion was had with the patient that she is not faking her seizures. Discussion was had that the patient is having seizures because that is how her brain is dealing with stress right now. The patient states that her panic attacks remain improved. Her hallucinations are much less now and she has had none in the past 2 or 3 days. She admits to having some passive thoughts that she would not care if she due to the fact that she is ashamed of having conversion disorder. She denies any suicidal ideation or plan for suicide. She denies homicidal ideation, hallucinations or delusions for the past 2 days. Current Psychiatric Medications: [] Zyprexa 7.5 mg p.o. nightly (increased 3 weeks ago); Klonopin 0.5 mg p.o. 3 times daily (she has been on this for a year); Tegretol 100 mg p.o. twice daily; Prozac 20 mg p.o. daily; propranolol 10 mg p.o. 3 times daily Mental Status Examination: [] Patient is a 29-year-old female who is seen by telehealth and is casually dressed and groomed with good hygiene. She has no psychomotor agitation or retardation. She remains somewhat depressed with tears at times. Eye contact is good and speech is normal rate and rhythm and fluent with no pressure. Thought process is organized and goal-directed. Thought content: There is no evidence of auditory hallucinations or tactile hallucinations for the past 2 to 3 days. No evidence of suicidal or homicidal ideation or plan. There is evidence of passive thoughts that she would not care if she at times. Judgment is intact. Insight: Limited. Impulsivity: Moderate. Diagnoses: [] Henrietta I: [] Schizophrenia; OCD; major depressive disorder, recurrent, severe without psychosis; PTSD; THC use disorder; history of polysubstance abuse; conversion disorder with pseudoseizures Henrietta II: [] Borderline traits Henrietta III: [] Negative Henrietta IV:[]]primary support, work and financial issues Plan: [] Patient will continue the IOP program at [facility] as the structure, support, education, individual and group therapy will hopefully prevent worsening of the patient's symptoms that might require hospitalization. She felt safe during the interview and if it anytime she does not feel safe she will let us know or go to the emergency room. The risks, options and possible complications and side effects of medications were discussed with the patient and she understands and accepts these. A refill was given for her Zyprexa 7.5 mg p.o. nightly, #30, 1 refill. She is to follow-up at the [facility] for treatment of her conversion disorder. She agrees that she will only take her Klonopin twice a day when possible. She admits that once or twice a week she gets away with only twice a day Klonopin and she is encouraged to take the least Klonopin that she requires. She will continue to avoid substance use and understands the risk that marijuana may increase her symptoms of psychosis.
--- NOTE | 2020-08-03 09:05 | BH.SGPN.GN ---
This psychotherapy group was provided via telehealth using two-way, real-time interactive telecommunication technology between the patients and the provider. The interactive telecommunication technology included audio and video. The patient was offered telemedicine as an option for care delivery during the COVID-19 pandemic and consented to this option. Patient location: [place] Provider located at [facility] Behaviors/Verbalizations/Mental Status: []Client alert and oriented, casual dress, hygiene tended to. Eye contact fair to good. Motor activity appropriate. Speech within normal limits.Affect congruent, mood anxious and euthymic. Thoughts linear, logical, no signs of hallucinations or delusions. Reviewed client?s symptom tracker, pt denies current suicidal thoughts or intention to date. Client Response/Progress/Benefit: []Patient responded well to session as evidenced by listening to others, providing feedback and support, as well as sharing thoughts and feelings. Patient stated emotion today as ?hopeful but a little jumpy?. She explained that she has been actively using a gratitude and personal accomplishments log each morning to start her day off on a more positive note. Expressed this has helped to improve overall mood this week. Pt identified an additional win as gaining more awareness into and beginning to address the unhealthy ways in which she typically manages stress. Expressed typically avoiding or detaching herself from the situation which has only prolonged the stress as a result. Shared that although it is anxiety provoking, she has begun to more actively address her stressors and practice being in the moment rather than disconnecting. Pt noted feeling proud of herself and more confident in ability to manage her emotions as a result. Seemed to benefit from expressing thoughts and feelings, as well as reflecting upon progress to others. Continues to struggle with negative self-talk and significant trauma impacting her core beliefs and coping. Recommended continued IOP treatment to further promote consistent application of skills, continue to work on depression and anxiety management, as well as prevent decompensation. Narrative Note: []
--- NOTE | 2020-08-03 10:18 | BH.SGPN.GN ---
This psychotherapy group was provided via telehealth using two-way, real-time interactive telecommunication technology between the patients and the provider.?The interactive telecommunication technology included audio and video.? ?The patient was offered telemedicine as an option for care delivery during the COVID-19 pandemic and consented to this option. ?Patient location: [place] ?Provider located at [facility] Behaviors/Verbalizations/Mental Status: []Client alert and oriented, neatly dressed and groomed. Eye contact good. Motor activity appropriate. Speech within normal limits-hard to hear client at times due to connection issues. Affect constricted, mood dysthymic and anxious. Thoughts linear, logical, no signs of hallucinations or delusions. Client Response/Progress/Benefit: []Client active participant as shown by active listening and contributing to discussion. Client contributed to the discussion of self-care and the consequences of not practicing self-care. Client agreed with peers that it is important to practice self-care, but they all struggle with through. Client helped the group discuss consequences of not practicing self-care such as: poor physical health, poor work performance, and poor emotional regulation. Client gave a personal example of a time when she put work before her own self-care which lead to worsening mental health and hurt client?s relationships. Client participated in the discussion of the common myths about self-care. Client participated in the discussion on debunking of these myths. Client?s group challenged the myths that self-care means a person is weak and self-care in unnecessary. Client seemed to benefit from increased awareness of the importance of self-care and challenging common myths that prevent practicing self-care. Will continue IOP tx to reduce negative thinking that reinforces depression and to improve emotional regulation skills. Narrative Note: []
--- NOTE | 2020-08-03 11:20 | BH.SGPN.GN ---
This psychotherapy group was provided via telehealth using two-way, real-time interactive telecommunication technology between the patients and the provider. The interactive telecommunication technology included audio and video. The patient was offered telemedicine as an option for care delivery during the COVID-19 pandemic and consented to this option. Patient location: [place] Provider located at [facility] Behaviors/Verbalizations/Mental Status: [] Client alert and oriented, casually dressed, hygiene appeared to be tended to. Eye contact fair. Motor activity appropriate. Speech within normal limits. Affect constricted, mood depressed. Thoughts linear, logical, no signs of hallucinations or delusions. Client Response/Progress/Benefit: []Client engaged participant AEB client providing input at times during discussions and listened attentively to peers. Client did have some technical issues during session which impacted her ability to fully engage in discussion. Participated in some group discussion on the various areas of self-care, benefits, and types of self-care activities for each area. Client completed worksheet in which she identified current self-care practices and what self-care activities she wants to start using. Client reported she will focus on improving her social self-care because she has been more isolated lately. Client states she will work on this by scheduling a get together with a friend versus just saying she is going to hang out with somebody because she tends to procrastinate. Will continue IOP tx to further promote the use of self-care practice, increase healthy coping skills and prevent decompensation.
--- NOTE | 2020-08-07 09:02 | BH.SGPN.GN ---
This psychotherapy group was provided via telehealth using two-way, real-time interactive telecommunication technology between the patients and the provider.?The interactive telecommunication technology included audio and video.? ?The patient was offered telemedicine as an option for care delivery during the COVID-19 pandemic and consented to this option. ?Patient location: [place] ?Provider located at [facility] Behaviors/Verbalizations/Mental Status: []Client alert and oriented, neatly dressed and groomed. Eye contact good. Motor activity appropriate. Speech within normal limits. Affect constricted, mood euthymic. Thoughts linear, logical, no signs of hallucinations or delusions. Reviewed client?s symptom tracker, no risk for suicidal ideation, plan, or intent as of 08/07/20. Client Response/Progress/Benefit: []Client responded well to session, engaged throughout. Client reports feeling positive this morning and shared multiple mental health wins. Client shared my mindset has shifted when asked what contributed to client's improved mood. Client stated she was able to be a support for a cousin, not blame herself for daughter's angry mood, and not catastrophizing. Client shared she is anxious about taking her daughter to the dentist today, but overall is in a good place. Appeared to benefit from reflecting on progress. Will continue IOP tx as client struggles with ongoing anxiety symptoms that interfere with functioning. Narrative Note: []
--- NOTE | 2020-08-07 14:19 | BH.MDN ---
Multi-Disciplinary Note - Note 30-min Individual Time Started:: 11:43 Date: 08/07/20 Purpose of session/treatment goals addressed:: The purpose of this session was to address client's current symptoms, application of coping skills, and review tx progress so far. Another goal was to discuss plan of care moving forward and ways to promote gains. Other topics included: self-advocacy Symptoms/Behavior:: This counseling session was provided via telehealth using two-way, real-time interactive telecommunication technology between the patient and the clinician. The interactive telecommunication technology included audio and video. The patient was offered telehealth as an option for care delivery during the COVID-19 pandemic and consented to this option. Patient location: [place]. Provider located at [facility] Eye Contact:: Good Motor Activity:: Appropriate Appearance:: Casual Speech:: Appropriate Mood:: Euthymic, Anxious Affect:: Congruent Thoughts:: Linear, Logical, No evidence of hallucinations/delusions noted Staff Interventions:: Therapist used active listening and open-ended questions to explore client's current symptoms and stressors, as well as elicit client opinion on tx progress and application of coping skills. Therapist reviewed progress with client and used TX techniques to explore client?s goals moving forward, identify ongoing areas of concern, and discuss continued plan of care. Applied strengths perspective to empower client on improved ability to apply acceptance, use of coping skills, and continued progress. Began discussing aftercare plans. Client Response:: Client responded well to session, open to meeting with therapist. Reports that she has been doing ?good the past few days? and feels a lot more positive than she had during session last week. Client attributed this to trying to be more self-compassionate and practice self-forgiveness when experiencing triggers associated with her past trauma. Expressed ?I?m tying to remind myself to focus on how I have grown and become stronger by these experiences rather than think about the actual trauma?. Shared actively working on ?forgiving my 13 year old self? and asking herself ?would I say these things to my 15 year old niece?? when struggling to do so. Went on to note that she has been ?less hyper-focused? on new stressors that had been negatively impacting her mood last week. Shared practicing acceptance of her anxiety and recent conversion disorder diagnosis and using more positive self-talk when thinking about it has been helpful as well. Client and therapist went on to discuss client?s perception of progress in treatment so far and areas in which she would like to continue focusing on. Identified personal progress in the areas of: improved ability to manage daily stressors resulting in reduced anxiety and panic, increased application of thought challenging, improved ability to manage hallucinations through self-talk and self-soothing skills, reduced depression, and increased mindful engagement with supports. Additionally, discussed improved application of daily self-care activities, noting that she lifted weights, cleaned the house, and spent time with her daughter the previous day. In discussing areas of ongoing difficulty, client reported she would like to continue working on managing her anxiety and negative thoughts that reinforce fear of advocating for herself, setting healthy boundaries, and impede self-confidence levels. Client open to beginning discussion on components of self-advocacy and importance of giving oneself permission to say ?no? in order to better advocate for her own needs. Risks/Concerns:: Client denies any active suicidal ideations, plan, or intent as of 08/07/20. Continues to report hallucinations though notes an improved ability to manage these. Denies they are command in nature. Client reports her family and goals for her future as major protective factors. Progress Toward Goals/Plan:: Progress noted. Client has been more engaged in group and individual sessions as well as reports improved ability to apply tx materials learned outside of the group environment. Reports improved ability to manage anxiety and depression, as well as improved relationships with her and daughter as a result. Client discussed feeling more capable of managing her chronic hallucination that have resulted in regular panic attacks in the past. Denies any suicidal ideation, plan, or intent in the past 3+ weeks. Client however continues to struggle with consistent emotion regulation and in the moment distress tolerance. Client will continue IOP tx to promote use of healthy coping skills, improve daily functioning, and reduce mental health symptoms. Time Stopped:: 12:13
--- NOTE | 2020-08-07 15:58 | BH.MTP_ITS ---
Treatment Plan Review Date of Admission:: 07/03/20 Date of Treatment Plan Review:: 08/07/20 Admitting Diagnoses:: schizophrenia; OCD; major depressive disorder recurrent, severe without psychosis; PTSD; THC use disorder; history of polysubstance abuse; rule out Current Diagnoses:: schizophrenia; OCD; major depressive disorder recurrent, severe without psychosis; PTSD; THC use disorder; history of polysubstance abuse; rule out Patient's Response to Treatment:: Client has displayed a positive response to treatment thus far. This is evidenced by client self-report and DSM-5 score reduction. Client has done well to remain engaged in both individual and group sessions, consistently provides feedback, and is willing to complete homework as provided. Client struggles at times to see consistent progress due to difficulty challenging cognitive distortions and self-reports ongoing self-doubt and guilt regarding past mistakes which has impacted her mood at times. She is receptive of challenging her negative thoughts when identifying the, and does well to identify skills to address barriers preventing progress. Client reports feeling proud of her progress so far and is motivated to continue to work towards further gains. She has remained compliant with all treatment recommendations and reports medication compliance as well. Client has maintained consistent attendance and is often willing to stay after or log on prior to group to meet i ndividually. Status of Current Problems and Symptoms: Client DSM-5 scores indicate an overall reduction in mental health sx. Pt reports feeling as though she has begun to see notable progress in her ability to manage mental health sx, specifically in regard to: improved ability to manage daily stressors resulting in reduced anxiety and panic, increased application of thought challenging, improved ability to manage hallucinations through self-talk and self-soothing skills, reduced depression, and increased mindful engagement with supports. Additionally, client identified improvement in overall use of self-care skills. Indicates she would like to continue working on managing her anxiety and negative thoughts that reinforce fear of advocating for herself, setting healthy boundaries, and impede self-confidence levels. Problem #1 Problem Name:: Reduce depression, hopelessness, and SI while improving mood stability Status of Goals:: Objective 1 ? Complete with continued focus recommended. Client is able to identify several healthy coping mechanisms for better managing her depression and maintaining mood stability. She reports implementing these skills on an increasingly consistent basis. Shared that she is better able to proactively implement skills when noticing triggers for depression; however, continues to struggle at times in this area. Client ongoing issues with self- doubt and negative self-talk messages prevent client from effectively utilizing healthy skills and she at times reverts to avoidance and isolation. 2- not complete. Client has learned to identify cognitive distortions, though struggles with consistently doing so. She is often able to recognize her distorted thoughts after the fact and is making progress in more actively recognizing them in the moment. At times client is able to challenge and replace distortions, but continues to struggle with consistency in this area. Team Recommendations:: Client encouraged to continue working on these treatment goals. Client and therapist have been working on challenging distortions, using calming skills, and practicing opposite action. Will continue IOP tx for further tx progress. Problem #2 Problem Name:: Pt. will reduce freq. & intensity of anxiety while increasing functioning Status of Goals:: Objective 1- incomplete. Client can identify some anxiety triggers and coping skills for managing these triggers. She is able to identify coping skills for addressing anxiety when in the treatment environment but struggles with doing so outside treatment setting. Client is showing improvement in this area and has found that more actively applying [id number] skills is positively contributing to her improved mood stability and reduced anxiety as well. Obj 2 ? Incomplete. Client continues to struggle with actively identifying and replacing distortions that contribute to increased anxiety and rumination. When able to identify these thoughts, however, she has seen an improvement in overall ability to replace them with alternative and more realistic thoughts. Team Recommendations:: Client encouraged to continue working on this treatment goal as she continues to experience ruminations, anxiety, paranoia, and agitation at times. Client and therapist have been working on challenging distortions, practicing calming skills, and relying on internal coping skills.
--- NOTE | 2020-08-08 09:00 | BH.SGPN.GN ---
Addendum entered and electronically signed by Kallie Roy LSW 08/13/20 14:04: This psychotherapy group was provided via telehealth using two-way, real-time interactive telecommunication technology between the patients and the provider. The interactive telecommunication technology included audio and video. The patient was offered telemedicine as an option for care delivery during the COVID-19 pandemic and consented to this option. Patient location: [place] Provider located at [facility] Original Note: Behaviors/Verbalizations/Mental Status: []Client alert and oriented, casual dress, hygiene tended to. Eye contact good. Motor activity appropriate. Speech within normal limits. Affect congruent, mood dysthymic and anxious. Thoughts linear, logical, no signs of hallucinations or delusions. Reviewed client?s symptom tracker, no signs of suicidal ideation, plan, or intent as of today. Client Response/Progress/Benefit: []Client responded well to session AEB actively listening to others and willingly sharing thoughts and feelings. Client stated her emotion today as ?withdrawn?. Explained not getting appropriate sleep the night before which she believes is impacting her overall mood and ability to focus. Client shared that she feels more emotionally vulnerable and disconnected when she isn?t sleeping. Did well to identify mindfulness skill she could engage in during break to help return to baseline and better engage. Client did well to identify additional mental health wins from the previous date which included managing her anxiety while taking her daughter to the dentist, as well as practicing positive self-talk even when she is not feeling positive. Seemed to benefit from expressing thoughts and feelings, as well as reflecting upon progress to others. Progress noted in improved thought challenging skills though continues to struggle with consistent mood regulation and significant negative core beliefs. Recommended continued IOP tx to maintain consistent application of skills, continue to work on anxiety management, and prevent decompensation. Narrative Note: []
--- NOTE | 2020-08-08 10:20 | BH.SGPN.GN ---
This psychotherapy group was provided via telehealth using two-way, real-time interactive telecommunication technology between the patients and the provider. The interactive telecommunication technology included audio and video. The patient was offered telemedicine as an option for care delivery during the COVID-19 pandemic and consented to this option. Patient location: [place] Provider located at [facility] Behaviors/Verbalizations/Mental Status: []Client alert and oriented, casually dressed and groomed. Eye contact good. Motor activity appropriate. Speech within normal limits. Affect congruent, mood euthymic, anxious. Thoughts linear, logical, no signs of hallucinations or delusions. Client Response/Progress/Benefit: [] Client active participant in group AEB providing insight and input on topic, as well as listening attentively to peers. At times it was difficult for client to fully engage due to poor internet connectivity. Group worked together to identify barriers to taking action in their lives which included fear of being seen as broken, lack of resources, comfort zone, fear of the unknown, feeling out of control, and self-stigma. Expressed connecting with low self-confidence as a personal barrier. Group identified that taking action can help benefit mental health by: helping to better engage in daily living, feeling more ?authentic?, setting a healthy example for others, and improving self-confidence. Client identified personal areas to take back control over in life to include: forgiving herself for her past, low self-esteem, and feeling obligated to please or put other?s needs first. Client shared that if she could take control over these things, she would feel more confident in herself, better engage with others, be able to better manage her mental health sx. Benefited from increased awareness of personal areas client wants to improve and benefits to taking action towards mental wellness. Will continue IOP tx to prevent decompensation, continue to promote application of grounding skills for improved emotion regulation, and increase use of internal coping skills. Narrative Note: []
--- NOTE | 2020-08-08 11:05 | BH.SGPN.GN ---
This psychotherapy group was provided via telehealth using two-way, real-time interactive telecommunication technology between the patients and the provider.?The interactive telecommunication technology included audio and video.? ?The patient was offered telemedicine as an option for care delivery during the COVID-19 pandemic and consented to this option. ?Patient location: [place] ?Provider located at [facility] Behaviors/Verbalizations/Mental Status: []Client alert and oriented, neatly dressed and groomed. Eye contact good. Motor activity appropriate. Speech within normal limits. Affect constricted, mood dysthymic. Thoughts linear, logical, no signs of hallucinations or delusions. Client has poor internet connection which impacts ability to hear client at times. Client Response/Progress/Benefit: []Client engaged in session AEB listening attentively to others and providing input during discussion, but cutting out at times due to internet connection. Client did well to participate during the activity in which participants were challenged to eliminate various items through group consensus. Client contributed to discussion of the barriers that occurred during the activity as well as the conflict resolution strategies. Client reviewed the worksheet on ten strategies to cope with conflict and client selected wanting to work on ?forgetting the past and staying in the present? to better manage conflict. Appeared to benefit from learning different strategies to better manage conflict. Progress noted in client?s report of practicing grounding techniques to manage triggers. Will continue IOP tx to promote mood stability, reduce intensity and duration of anxiety, and improve daily functioning. Narrative Note: []
--- NOTE | 2020-08-10 09:00 | BH.SGPN.GN ---
This psychotherapy group was provided via telehealth using two-way, real-time interactive telecommunication technology between the patients and the provider. The interactive telecommunication technology included audio and video. The patient was offered telemedicine as an option for care delivery during the COVID-19 pandemic and consented to this option. Patient location: [place] Provider located at [facility] Behaviors/Verbalizations/Mental Status: []Client alert and oriented, casually dressed. Eye contact good. Motor activity appropriate. Speech within normal limits. Affect constricted, mood anxious and euthymic. Thoughts linear, logical, no signs of hallucinations or delusions. Reviewed client?s symptom tracker, no risk or plan for suicide ideation as of 08/10/20. Client Response/Progress/Benefit: []Client responded well to session, engaged and participated throughout discussion. Client reported having a panic attack last night as she felt ?the mckeon were going to fall in.? Client shared she had little to no sleep and used healthy coping skills like ?healthy distractions, focusing on daughter, and deep breathing? to stop the panic attack. Therapist discussed benefits from practicing reality grounding and mindfulness. Client reported her depression decreasing, but noted that OCD and anxiety has increased and ?replaced the depression.? Client shared she is having more ?good days.? Progress noted as client was able to use healthy coping skills and benefited from group as other group members gave positive feedback. Client will continue IOP to increase the use of healthy coping skills, improve daily functioning, and better regulate emotions. Narrative Note: []
--- NOTE | 2020-08-10 11:15 | BH.SGPN.GN ---
This psychotherapy group was provided via telehealth using two-way, real-time interactive telecommunication technology between the patients and the provider.?The interactive telecommunication technology included audio and video.? ?The patient was offered telemedicine as an option for care delivery during the COVID-19 pandemic and consented to this option. ?Patient location: [place] ?Provider located at [facility] Behaviors/Verbalizations/Mental Status: []Client alert and oriented, neatly dressed and groomed. Eye contact good. Motor activity appropriate. Speech within normal limits-hard to hear client at times due to poor internet connection. Affect constricted, mood anxious. Thoughts linear, logical, no signs of hallucinations or delusions. Client Response/Progress/Benefit: []Client was engaged throughout AEB contribution to discussion. Client reported her comfort zone is isolating, avoiding people, and cleaning excessively. Client reports wanting to work on reaching out to family and reducing compulsions. Shared small steps she can take to step out of comfort zone as: reaching out to one family member and scheduling time to clean rather than cleaning for hours. Appeared to benefit from psychoeducation and working with the group to brainstorm strategies to promote growth and get out of one?s comfort zone. Client will continue IOP tx as client has reduced depressive symptoms, but client continues to report OCD and anxiety symptoms that impair functioning. Narrative Note: []
--- NOTE | 2020-08-14 10:09 | BH.SGPN.GN ---
This psychotherapy group was provided via telehealth using two-way, real-time interactive telecommunication technology between the patients and the provider. The interactive telecommunication technology included audio and video. The patient was offered telemedicine as an option for care delivery during the COVID-19 pandemic and consented to this option. Patient location: [place] Provider located at [facility] Behaviors/Verbalizations/Mental Status: []Client alert and oriented, casually dressed and hygiene fair. Eye contact fair to good. Motor activity appropriate. Speech within normal limits, minimal input provided. Affect constricted, mood anxious and dysthymic, Thoughts linear, logical, no signs of hallucinations or delusions. Client Response/Progress/Benefit: []Client responded well to session, attentive and taking notes throughout. Group discussed benefits of healthy communication on mental health which included: let?s others know what we are feeling, gets our needs met, prevents avoidable problems, improves relationships, and helps establish healthier boundaries. Group additionally discussed potential barriers to communication including: shutting down, passive-aggressive communication, assumptions, being vague, and poor emotional regulation. Client noted connecting with barrier of avoiding/shutting down. Remained attentive during psychoeducation on the four communication styles. Client self-reports identifying most with the passive communication style. Shared that passive communication has resulted in others expecting her to be passive and ultimately prevented client from getting her needs met. Noted this reinforces depression and causes stressors to continue to build. Benefited from increased insight regarding her own communication style and impacts this has on overall mental health. Progress remains variable as client passive communication often prevents her from asking for help and practicing self-care when needed. Client will continue in IOP to reduce negative thinking that reinforces depressive symptoms, improve self-care, and to improve daily functioning. Narrative Note: []
--- NOTE | 2020-08-14 11:11 | BH.SGPN.GN ---
This psychotherapy group was provided via telehealth using two-way, real-time interactive telecommunication technology between the patients and the provider.?The interactive telecommunication technology included audio and video.? ?The patient was offered telemedicine as an option for care delivery during the COVID-19 pandemic and consented to this option. ?Patient location: [place] ?Provider located at [facility] Behaviors/Verbalizations/Mental Status: []Client alert and oriented, neatly dressed and groomed. Eye contact good. Motor activity appropriate. Speech within normal limits. Affect flat, mood dysthymic. Thoughts linear, logical, no signs of hallucinations or delusions. Client Response/Progress/Benefit: []Client responded well to session AEB client listening attentively to others and providing input during small group discussion on the pay offs and costs of the different communication styles. Attentive during psychoeducation on assertiveness strategies to improve communication, and client selected an assertiveness skill to practice. Client selected the skill be express her needs rather than ?assuming others know how I?m feeling.? Client plans to do this by working on verbalizing her emotions to supports rather than isolating. Client seemed to benefit from increasing awareness of healthy strategies to improve communication. Client has made progress with gaining awareness, but she self-reports limited implementation of self-care which could hinder progress. Will continue IOP tx to prevent decompensation, improve emotional regulation skills, and improve daily functioning. Narrative Note: []
--- NOTE | 2020-08-14 14:13 | BH.MDN_ITS ---
Multi-Disciplinary Note - Note 30-min Individual Time Started:: 09:33 Date: 08/14/20 Purpose of session/treatment goals addressed:: The purpose of this session was to address client's treatment plan goal #1 objectives #1 and #2. Symptoms/Behavior:: This counseling session was provided via telehealth using two-way, real-time interactive telecommunication technology between the patient and the clinician. The interactive telecommunication technology included audio and video. The patient was offered telehealth as an option for care delivery during the COVID-19 pandemic and consented to this option. Patient location: [place]. Provider located at [facility] Eye Contact:: Good Motor Activity:: Appropriate Appearance:: Casual Speech:: Appropriate Mood:: Anxious, Dysthymic Affect:: Congruent Thoughts:: Linear, Logical, No evidence of hallucinations/delusions noted Staff Interventions:: Therapist used active listening and open-ended questions to explore client's current symptoms and stressors, as well as continued application of coping skills. Therapist provided supportive feedback and empathic responses as client shared. Used CBT components of Cognitive restructuring and behaviors chain analysis to identify and address barriers reinforcing recent influx in depressive sx. Provided homework to complete identified self-care goal. Client Response:: Client responded well to session, open to meeting with therapist. Reports that she has been doing ?okay? since last session but has been feeling more depressed and claustrophobic since last . Attributes this to a lack of sleep as a result of difficulties falling asleep and having work done on the house which begins early in the morning. Shared that the construction is happening on the exterior of the home but often shakes the mckeon and has resulted in client experiencing thoughts that the ?mckeon are closing in?. Additionally, noted that her self-care has also been suffering over the past week and noted feeling too tired to engage in self-care. Receptive of and appeared to connect with discussion reviewing importance of self-care in preventing regression and breaking cycle of depression. Noted experiencing incr eased negative thoughts as well. Able to identify connection between decreased self-care, poor sleep hygiene, and negative self-talk/distorted thoughts. Client reports plans to more intentionally make self-care a daily priority. Identified small goal to find time for herself today by practicing deep breathing and using more self-compassionate statements when catching negative self-talk. Risks/Concerns:: Client denies any active suicidal ideations, plan, or intent as of 08/14/20. Continues to report hallucinations though continues to note an improved ability to manage these. Denies they are command in nature. Client reports her family and goals for her future as major protective factors. Progress Toward Goals/Plan:: Some regression noted. Client reports a recent influx in depression, negative self-talk, and reduced use of self-care skills. Did well to provide insight on impact poor self-care has on reinforcing depression. Able to reframe negative thoughts and identify small self-care goals for the evening. Client will continue IOP tx to continue to promote skill application and improve daily functioning, reduce negative self-talk, and reduce mental health symptoms. Time Stopped:: 10:06
--- NOTE | 2020-08-15 09:05 | BH.SGPN.GN ---
Behaviors/Verbalizations/Mental Status: [] Eye contact is good. Motor activity is appropriate. Appearance is casual. Speech is Appropriate. Mood is euthymic. Affect is full. Thoughts are linear and logical. No evidence of psychosis. Reviewed daily check in sheet and no reports of suicidal ideations or intent. Client Response/Progress/Benefit: [] Pt participated when prompted. Attentive during group discussions. Emotion for today is relieved. Shared that she was highly anxious and panicky yesterday, however she utilized skills later on in the day and noticed that her symptoms lessen. Pt reports that she utilized mindfulness, journaling, and other creative outlets to help. Reports being in a very positive mood today. Insight that she has more control over her emotions than she had thought in the past. Progress noted per pt report. Benefited from group support and encouragement. Will continue in IOP to maintain gains and improve functioning. Narrative Note: [] This psychotherapy group was provided via telehealth using two-way, real-time interactive telecommunication technology between the patients and the provider.?The interactive telecommunication technology included audio and video.? ?The patient was offered telemedicine as an option for care delivery during the COVID-19 pandemic and consented to this option. ?Patient location: [place] ?Provider located at [facility]
--- NOTE | 2020-08-15 10:20 | BH.SGPN.GN ---
This psychotherapy group was provided via telehealth using two-way, real-time interactive telecommunication technology between the patients and the provider.?The interactive telecommunication technology included audio and video.? ?The patient was offered telemedicine as an option for care delivery during the COVID-19 pandemic and consented to this option. ?Patient location: [place] ?Provider located at [facility] Behaviors/Verbalizations/Mental Status: []Client alert and oriented, neatly dressed and groomed. Eye contact good. Motor activity appropriate. Speech within normal limits. Affect constricted, mood anxious. Thoughts linear, logical, no signs of hallucinations or delusions. Client Response/Progress/Benefit: []Client responded well to session, attentive during discussion and engaged during the activity. Group reported even though change can be scary, change can be positive. Discussed how change can lead to improved mental health and relationships. Worked with the group to identify barriers to making change, which included: fear of failure, uncomfortable emotions, and putting others first. Client reported she has avoided change in the past due to fear of others not being receptive to the change. Client participated in the activity where they identified and discussed the emotions related to change. Benefited from increased awareness and understanding of emotions, benefits, and barriers related to change. Progress noted as client reports practicing mindfulness, but client continues to struggle with isolation and negative thinking. Will continue IOP tx to prevent decompensation and improve mood stability. Narrative Note: []
--- NOTE | 2020-08-17 09:00 | BH.SGPN.GN ---
This psychotherapy group was provided via telehealth using two-way, real-time interactive telecommunication technology between the patients and the provider. The interactive telecommunication technology included audio and video. The patient was offered telemedicine as an option for care delivery during the COVID-19 pandemic and consented to this option. Patient location: [place] Provider located at [facility] Behaviors/Verbalizations/Mental Status: []Client alert and oriented, casually dressed. Eye contact fair. Motor activity appropriate. Speech within normal limits. Affect flat, mood anxious. Thoughts linear, logical, no signs of hallucinations or delusions. Reviewed client?s symptom tracker, no risk or plan for suicide ideation as of 08/17/20. Client Response/Progress/Benefit: []Client responded well to session, engaged and participated throughout discussion. Client reported feeling ?hopeful and anxious? as client explained she visited her mother yesterday which was positive, but her OCD tendencies increased at her mother?s house. Client reported using healthy distractions by focusing on her daughter, leaving the room to ground herself, and cooking. Client said she did not sleep well throughout the night but has focused on the positives when negative distortions arise. Client stated a stressor is feeling like a disappointment as a parent as she feels like ?a failure?due to not being able to buy many gifts during the holidays.. Client benefited from group as other group members provided positive feedback and discussed self-affirmations. Client will continue IOP to improve daily functioning, continue the use of healthy coping skills, and decrease intensity of MH symptoms. Narrative Note: []
--- NOTE | 2020-08-17 10:05 | BH.SGPN.GN ---
This psychotherapy group was provided via telehealth using two-way, real-time interactive telecommunication technology between the patients and the provider. The interactive telecommunication technology included audio and video. The patient was offered telemedicine as an option for care delivery during the COVID-19 pandemic and consented to this option. Patient location: [place] Provider located at [facility] Behaviors/Verbalizations/Mental Status: []Client alert and oriented, casual dress, hygiene tended to. Eye contact fair. Motor activity appropriate. Speech within normal limits. Affect constricted, mood anxious. Thoughts linear, logical, no signs of hallucinations or delusions. Client Response/Progress/Benefit: []Client responded well to session, providing feedback to peers and insight to discussion. Engaged during psychoeducation portion reviewing fixed mindset. Client connected with traits of the fixed mindset and worked with group to identify how a fixed mindset can impact our mental health which included: increased distortions, negative self-talk, ruminations, all or nothing thinking, self-fulfilling prophecies, unchanging mindset, and keeps us from accomplishing tasks/goals. Client reported the fixed thoughts she encounters include ?I will never get better, I do not have enough time, I am a burden to others, I am stupid.? Client reported her fixed mindset holds her back from accomplishing tasks and goals. Other impacts were not being as receptive to others in communication and unable to focus on the positives. Benefited from group by increasing awareness of how one's mindset impacts mental health. Progress noted AEB client openly shared her fixed mindsets to other group members and increased self-confidence and awareness. Client will continue IOP to improve daily functioning, decrease MH symptoms, and continue the use of healthy coping skills. Narrative Note: []
--- NOTE | 2020-08-17 11:15 | BH.SGPN.GN ---
Behaviors/Verbalizations/Mental Status: []Client alert and oriented, casually dressed and groomed. Eye contact fair to good. Motor activity appropriate. Speech within normal limits, quiet. Affect congruent. mood dysthymic. Thoughts linear, logical, no signs of hallucinations or delusions. Client Response/Progress/Benefit: []Client actively listening, providing input during discussion, and taking notes throughout. Client did well to work with group on identifying characteristics and benefits of adopting a growth mindset. Client provided input during activity in which participants helped reframe example fixed thoughts into growth mindset thoughts. Reports that being able to reframe her own fixed thoughts could aid with reducing negative self-talk and improve overall mood. Client worked to apply skills learned to reframe own personal fixed thoughts. Reframed thought of ?I?m a burden? with growth mindset thought of ?Everyone needs help sometimes and it?s okay to give myself a break. I would want my supports to do the same for themselves?. Benefitted from discussing benefits of growth mindset and brainstorming strategies for prompting a growth-mindset. Client progress noted in client improved use of self-care skills, though continues to struggle with consistency as well as negative self-talk. Will continue IOP tx to continue to promote active thought challenging and skill application as well as improve healthy coping repertoire. Narrative Note: []
--- NOTE | 2020-08-20 12:43 | PCM.BH.PN ---
Progress Note Progress Note: History of Present Illness/Interim History: [] The patient is a 29-year-old female who is seen by telehealth in follow-up at the [facility] behavioral health IOP program. I last saw the patient 2-1/2 weeks ago. The patient describes her mood as pretty good. Her anxiety increases when she is triggered which happened recently when she was filling out paperwork to see a new therapist and was recalling past trauma in her childhood. When that happens she feels very anxious anxious but has not had an outright panic attack. Most days she says she is doing okay. She sleeps about 4 to 5 hours only due to her anxiety. She had 1 pseudoseizure about 5 days ago and that is the only one she has had in the last 2 weeks. She is enjoying doing activities with her family now. Her hallucinations are minimal and do increase at times when she is stressed but she is able to ignore them and cope with them. She is having occasional passive thoughts that she would not care if she but denies any suicidal or homicidal ideation. She also denies any plan for suicide. Current Psychiatric Medications: [] Zyprexa 7.5 mg p.o. nightly (x1 month now); Klonopin 0.5 mg p.o. 3 times a day; Tegretol 100 mg p.o. twice daily (this was discontinued about 1 month ago).; Prozac 20 mg p.o. daily; propranolol 10 mg p.o. 3 times daily. Mental Status Examination: [] Patient is a 29-year-old female who is seen via telehealth and appears casually dressed and groomed with good hygiene. She has no psychomotor agitation or retardation. Eye contact is good and speech is normal rate and rhythm and fluent with no pressure. Mood is approaching euthymia but patient appears somewhat anxious. Affect is constricted. Thought process is goal-directed and organized. Thought content: Patient admits to occasional subtle auditory hallucinations but she is able to ignore and cope with them no evidence of delusions, suicidal or homicidal ideation. Judgment is intact. Insight: Limited. Impulsivity: Moderate Diagnoses: [] [place] I: [] Schizophrenia; OCD; major depressive disorder, recurrent, severe without psychosis; PTSD; THC use disorder; history of polysubstance abuse; conversion disorder with pseudoseizures [place] II: [] Borderline traits [place] III: [] Negative [place] IV:[]]primary support, work and financial issues Plan: [] The patient will continue the IOP program at [facility] as the structure, support, education, individual and group therapy will hopefully prevent worsening of the patient's symptoms. She felt safe during the interview and if at any time she does not feel safe she will let us know or go to the emergency room. The risk, options, possible side effects and complications of the medications were discussed with the patient and she understands and accepts these. The patient is worried that her prescription refills will run out because she is unable to see another psychiatric provider until October 22, 2020. For that reason 2 prescriptions were given to the patient. The Zyprexa was increased to 10 mg p.o. daily today and a prescription was given for 30 days with 1 refill. In addition a refill was given for her Klonopin 0.5 mg p.o. 3 times a day with 1 refill. The patient has been on the Klonopin for about a year and was started by her outpatient provider but her current provider would not provide it anymore. The patient will follow up with her outpatient providers as scheduled and I will see the patient in 2 weeks to see how she is doing on the increased dose of Zyprexa. She understands that the Zyprexa may help her anxiety further and allow her to more easily wean off the Klonopin in the future.
--- NOTE | 2020-08-21 09:00 | BH.SGPN.GN ---
Behaviors/Verbalizations/Mental Status: []Client alert and oriented, casual dress, hygiene tended to. Eye contact good. Motor activity appropriate. Speech within normal limits. Affect congruent, mood euthymic. Thoughts linear, logical, no signs of hallucinations or delusions. Reviewed client?s symptom tracker, no signs of suicidal ideation, plan, or intent as of today. Client Response/Progress/Benefit: []Client responded well to session, actively listening and willing to process with group. Client identified emotion today as ?determined?. Shared that she feels more confident in the progress she has been making and has been feeling more confident in overall ability to confront anxieties without engaging in avoidance. Noted this as a current mental health positive, identifying that she had successfully managed increased anxiety related to her daughter?s behavior by removing herself from the situation and listening to a calming audiobook. Additional positive noted as regularly practicing self-compassion which has aided in reducing negative self-talk messages. Current stressor identified as a toothache which client expressed plans to make a dentist appointment rather than allow herself to ?just be mad?. Client appeared to benefit from supportive feedback and reflecting upon progress with the group. Recommended continued IOP tx to encourage healthy change behaviors, further reduce anxiety, and prevent decompensation prior to discharge date scheduled for this Thursday, 08/24. Narrative Note: []
--- NOTE | 2020-08-21 10:03 | BH.SGPN.GN ---
This psychotherapy group was provided via telehealth using two-way, real-time interactive telecommunication technology between the patients and the provider.?The interactive telecommunication technology included audio and video.? ?The patient was offered telemedicine as an option for care delivery during the COVID-19 pandemic and consented to this option. ?Patient location: [place] ?Provider located at [facility] Behaviors/Verbalizations/Mental Status: []Client alert and oriented, casually dressed and groomed. Eye contact fair. Motor activity appropriate. Speech within normal limits. Affect constricted, mood euthymic. Thoughts linear, logical, no signs of hallucinations or delusions. Client Response/Progress/Benefit: Client engaged participant AEB pt providing input at times during group session, taking notes and listened attentively to peers. Group discussed healthy versus unhealthy coping skills and what contributes to people using unhealthy skills. The group stated unhealthy coping skills tend to be easy and habitual, temporary relief, and learned behaviors. Client gained awareness of unhealthy coping skills she has used for temporary relief. Client seemed to benefit from increased awareness of importance of increasing healthy coping skills and consequences of utilizing unhealthy coping skills. Client will continue IOP tx to further improve emotional regulation skills and decrease depression.
--- NOTE | 2020-08-21 15:12 | BH.MDN ---
Multi-Disciplinary Note - Note 30-min Individual Time Started:: 11:50 Date: 08/21/20 Purpose of session/treatment goals addressed:: The purpose of this session was to review client's treatment progress and strategies that will continue to promote gains made in IOP. Another goal was to discuss discharge recommendations. Symptoms/Behavior:: This counseling session was provided via telehealth using two-way, real-time interactive telecommunication technology between the patient and the clinician. The interactive telecommunication technology included audio and video. The patient was offered telehealth as an option for care delivery during the COVID-19 pandemic and consented to this option. Patient location: [place]. Provider located at [facility] Eye Contact:: Good Motor Activity:: Appropriate Appearance:: Casual Speech:: Appropriate Mood:: Euthymic, Anxious Affect:: Congruent Thoughts:: Linear, No evidence of hallucinations/delusions noted Staff Interventions:: Therapist used open-ended questions to explore client's thoughts on personal progress. Provided client with DSM-5 assessment and aided in interpretation of scores, including symptom reduction from admission to discharge. Therapist reviewed supports, warning signs, and coping skills with client to promote gains and prevent setbacks. Therapist discussed aftercare plan with client and used strengths-perspective to empower client on the goals client has accomplished. Therapist discussed the benefits of ongoing maintenance and use of daily coping skills. Therapist reviewed with client aftercare plans and discussed the importance of ongoing outpatient therapy and medication management. Client Response:: Client responded well to session, open to meeting with therapist. Client reflected on her progress since starting IOP and shared belief that she is in a healthy space mentally. Reports ?I know my problems are 100% resolved, but I?m 100% more capable of coping with them now?. Client indicates she has seen most significant progress in her ability to identify and challenge distorted thoughts, better manage anxiety, and practice using more self-compassion. Expressed that through learning to forgive herself and ?give myself a break every once in a while? she feels more empowered and has experienced fewer self-deprecating thoughts. Client noted plans to continue working on self-esteem and addressing the underlying trauma that contributes to negative core beliefs in individual outpatient therapy. Client reports improved engagement in her personal relationships and attributes this to actively practicing mindfulness and grounding exercises when tempted to disengage herself. Client reviewed coping skills that will promote gains and mood stability. Client's coping skills included; 5-senses, listening to calming audiobooks, talking with her , practicing components of self-compassion, setting small goals, and regularly using positive affirmations. Client reported she is anxious about leaving [facility] because it has been a positive support for client, but client recognizes that she has the skills needed to maintain gains. Plan is to begin aftercare treatment starting 08/29/20. Risks/Concerns:: Client denies any suicidal ideations, plan, or intent to date, 08/21/20. Progress Toward Goals/Plan:: Client to discharge from [facility] Thursday as she has accomplished her treatment goals. Client reports decreased depression, reduced anxiety, and improved functioning. Client's DSM-5 symptoms have significantly decreased since admission. Client additionally reports improved use of healthy coping skills which has helped client better manage her warning signs and symptoms, address unexpected stressors, and prevent continued negative maintenance cycles. Client?s symptoms have decreased in intensity and duration. Client reports plans to begin outpatient counseling with [facility] and is scheduled for ongoing medication management through the [facility], next appointment is 10/18/20. Time Stopped:: 12:22
--- NOTE | 2020-08-22 09:02 | BH.SGPN.GN ---
This psychotherapy group was provided via telehealth using two-way, real-time interactive telecommunication technology between the patients and the provider. The interactive telecommunication technology included audio and video. The patient was offered telemedicine as an option for care delivery during the COVID-19 pandemic and consented to this option. Patient location: [place] Provider located at [facility] Behaviors/Verbalizations/Mental Status: []Client alert and oriented, casual dress, hygiene tended to. Eye contact fair. Motor activity appropriate. Speech within normal limits. Affect congruent, mood euthymic. Thoughts linear, logical, no signs of hallucinations or delusions. Reviewed client?s symptom tracker, pt denies current suicidal thoughts or intention to date. Client Response/Progress/Benefit: []Pt responded well to session AEB pt openly sharing thoughts and feelings and appeared to listen attentively to others. Pt stated she is doing good today. Pt reported she can note progress within herself because she is managing multiple stressors in a healthy manner. Pt stated she was reflecting on her progress since starting IOP which she stated makes her feel proud of herself. Pt reported stressor is having to go to a for her mom's best friend. Pt stated the last she went to resulted in pt having a panic attack. Pt reported feeling more hopeful she can manage her anxiety so she can be a positive support for her mom. Progress noted with pt reporting improved mood and utilization of healthy coping skills. Pt to continue IOP to maintain gains and prevent decompensation. Narrative Note: []
--- NOTE | 2020-08-22 10:15 | BH.SGPN.GN ---
This psychotherapy group was provided via telehealth using two-way, real-time interactive telecommunication technology between the patients and the provider.?The interactive telecommunication technology included audio and video.? ?The patient was offered telemedicine as an option for care delivery during the COVID-19 pandemic and consented to this option. ?Patient location: [place] ?Provider located at [facility] Behaviors/Verbalizations/Mental Status: []Client alert and oriented, casually dressed and groomed. Eye contact good. Motor activity appropriate. Speech within normal limits. Affect congruent, mood euthymic. Thoughts linear, logical, no signs of hallucinations or delusions. Client Response/Progress/Benefit: []Client was an engaged participant AEB client taking notes, providing input, and attentively listening to peers throughout. Client connected with group topic of perspective and the impacts of one?s perspective on mental health. She shared that perspective can impact how we view both ourselves and others. Client worked with group to identify how negative perspective can impact mental health which included: self-fulfilling prophecy, maintain unhealthy mental health cycles, and lead to more negative thinking.?Client contributed as group discussed ways a positive perspective can impact mental health such as: be more willing to keep trying when faced with setbacks, be more open to new experiences and new relationships, as well as improve self-confidence. Noted that she has struggled with negative thoughts reinforcing a negative perspective but is now doing better with reframing and challenging those thoughts. Client appeared to benefit from increasing understanding of mental health benefits of a positive perspective and potential consequences to progress when perspective is negative. Progress noted in self-report of improved skill application and reduced sx. Client will continue IOP tx to prevent decompensation, improve emotional regulation skills, and improve daily functioning. Narrative Note: []
--- NOTE | 2020-08-22 11:17 | BH.SGPN.GN ---
This psychotherapy group was provided via telehealth using two-way, real-time interactive telecommunication technology between the patients and the provider.?The interactive telecommunication technology included audio and video.? ?The patient was offered telemedicine as an option for care delivery during the COVID-19 pandemic and consented to this option. ?Patient location: [place] ?Provider located at [facility] Behaviors/Verbalizations/Mental Status: []Eye contact is good. Motor activity is appropriate. Appearance is casual. Speech is Appropriate. Mood is euthymic. Affect is constricted. Thoughts are linear and logical. No evidence of psychosis. Client Response/Progress/Benefit: []Client was an active participant in group discussion. Attentive during psychoeducation. Active participant in group discussion on the impact of perspective on how we view ourselves. Client worked with the group to develop a working definition of the term strengths and the importance of recognizing one's strengths. Client was given a worksheet and was asked to [place] at least 3 strengths which client selected: empathy, cooperation, and gratitude. Group then worked together to identify strategies to remind themselves of their strengths and client selected not minimizing as her strategy. Progress noted AEB client?s self-report of improved ability to cope with stressors. Benefited from increased awareness of the role of perspective and strengths in daily mental health wellness. Will continue in IOP to reinforce healthy coping skills and discharge Thursday. Narrative Note: []
--- NOTE | 2020-08-24 08:30 | BH.DS_ITS ---
Discharge Summary - Demographics Date of Admission:: 07/03/20 Discharge Date: 08/24/20 Presenting Problems at Admission:: The Client is a 29-year-old female who referred herself to the [facility] behavioral health IOP program due to worsening symptoms of anxiety, depression and hallucinations. At time of intake, client reported symptoms have been worsening since March 2020. Client has a longstanding history of visual and auditory hallucinations occurring since she was 13 years old, though reports only recently accepting the schizophrenia diagnosis. Reports this is due to trauma related to her late father who had also been diagnosed with schizophrenia. She has a history of PTSD and anxiety. 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 Reports losing her job due to having pseudo-seizures and fainting spells at work secondary to anxiety. Additional stressors contributing to symptoms include client?s physical health issues and her mother?s decline in physical health. She endorsed feeling depressed with occasional hopelessness, isolation, no motivation, decreased sleep, low energy, decreased concentration, feeling guilty, passive thoughts that she would not care if she , increased hallucinations, increased rumination, daily panic attacks, and PTSD sx. Client reported inability to complete ADLs and take care of herself at her baseline since the increase in sx. Client's symptoms were impacting her ability to function at her baseline. Discharge Diagnoses:: schizophrenia; OCD; major depressive disorder recurrent, severe without psychosis; PTSD; THC use disorder; history of polysubstance abuse; rule out Reason for Discharge:: Client has made significant improvements in treatment and has accomplished her treatment goals. Client's DSM-5 scores for depression, anxiety, OCD related tendencies have decreased and client reports an overall improved mood. Client indicates [facility] and begin the [facility] aftercare program. Client no longer meets criteria for [facility] level of care. - Treatment Progress During Treatment & Response: Client has made significant strides since starting IOP treatment. This is evidenced by her improved mood, decreased isolation, reduced symptoms of panic, and increased ability to cope with her mental health symptoms. While in the IOP program, client was an active participant in group and often offered positive feedback and contributions to discussion. Client remained actively engaged during individual sessions and was receptive of learning and implementing new skills for managing her mental health. Client was consistent with completing homework and self-reported regularly applying coping skills, specifically that of grounding, positive self- talk, and mindfulness. When client started [facility] she was experiencing anxiety, depression, isolative behaviors, increased hallucinations, and negative thinking daily. Now, client can recognize her warning signs earlier, has been isolating less and engaging more with her family, and reports a significant decline in both panic attack and psuedosiezures. Client has worked to challenge negative thoughts that reinforce depression, acknowledge her wins, practice components of self-compassion, and apply healthy coping skills daily. Client has shown great strides in managing her anxiety and reminding herself to apply self-care skills daily. Client?s DSM-5 scores decreased by 51% since admission. Client?s scores for depression decreased from 8/8 at admission to 3/8 at discharge. Client?s scores for anxiety decreased from 12/12 at admission to 7/12 at discharge, and OCD related symptoms reduced from 8/8 to 4/8. Discharge Recommendations/Instructions:: Client to discharge from [facility] Thursday as she has accomplished her treatment goals. Client reports decreased depression, reduced anxiety, and improved functioning. Client's DSM-5 symptoms have significantly decreased since admission. Client additionally reports improved use of healthy coping skills which has helped client better manage her warning signs and symptoms, address unexpected stressors, and prevent continued negative maintenance cycles. Client?s symptoms have decreased in intensity and duration. Client reports plans to begin outpatient counseling with [facility] and is looking into options for EMDR treatment as well. She is scheduled for ongoing medication management through the [facility], next appointment is 10/18/20. Client is to begin the [facility] Aftercare program on 08/30/20. Discharge Handout: Complete Discharge Handout with client on aftercare options and continuity of care.
--- NOTE | 2020-08-24 09:00 | BH.SGPN.GN ---
Behaviors/Verbalizations/Mental Status: [] Eye contact is good. Motor activity is appropriate. Appearance is neat. Speech is Appropriate. Mood is euthymic. Affect is full. Thoughts are linear and logical. No evidence of psychosis. Reviewed daily check in sheet and no reports of suicidal ideations or intent. Client Response/Progress/Benefit: [] Pt participated when prompted. Attentive. Emotion for today is grateful. Shared that today is her last day in [facility]. Discussed the benefits of the program talking specifically about a group earlier this week. Reports mixed feelings about leaving IOP and discussed her aftercare plans. Completed goals from earlier this week to show herself more self-compassion. Progress noted per pt repot. Benefited from group support and encouragement. Plan is to discharge from [facility] today. Narrative Note: [] This psychotherapy group was provided via telehealth using two-way, real-time interactive telecommunication technology between the patients and the provider.?The interactive telecommunication technology included audio and video.? ?The patient was offered telemedicine as an option for care delivery during the COVID-19 pandemic and consented to this option. ?Patient location: [place] ?Provider located at [facility]
--- NOTE | 2020-08-24 10:15 | BH.SGPN.GN ---
This psychotherapy group was provided via telehealth using two-way, real-time interactive telecommunication technology between the patients and the provider. The interactive telecommunication technology included audio and video. The patient was offered telemedicine as an option for care delivery during the COVID-19 pandemic and consented to this option. Patient location: [place] Provider located at [facility] Behaviors/Verbalizations/Mental Status: []Client alert and oriented, casually dressed and appropriately groomed. Eye contact good. Motor activity appropriate. Speech within normal limits. Affect congruent, mood euthymic and anxious. Thoughts linear, logical, no signs of hallucinations or delusions. Client Response/Progress/Benefit: []Client engaged during session AEB client providing input throughout, taking notes, and listening attentively to others. Client worked with peers on defining goals and brainstormed with the group the benefits of goal setting. Benefits included: improved motivation, increased self-confidence, sense of accomplishment, and less stress. Noted that for her, celebrating progress towards goals has helped to keep her on track and continue working towards improvement. Client helped group discuss the barriers that keep people from either setting goals or following through with goals. Client identified personal barriers as: negative thoughts, self-hate or negative self-talk, past failure, and lack of support. Client elaborated that in the past she has struggled with telling herself she doesn?t deserve to achieve things because of the mistakes she has made in the past. Noted that through IOP and positive self-talk she is more capable of successfully challenging and reframing this thought. Client able to provide feedback during psychoeducation on SMART goals. Appeared to benefit from learning the mental health benefits of setting goals using SMART criteria. Given progress made client is to discharge from IOP tx and begin Aftercare program to continue to promote healthy coping, maintain gains, and prevent decompensation. Narrative Note: []
--- NOTE | 2020-08-24 11:25 | BH.SGPN.GN ---
Behaviors/Verbalizations/Mental Status: [] Eye contact is good. Motor activity is appropriate. Appearance is neat. Speech is Appropriate. Mood is euthymic. Affect is full. Thoughts are linear and logical. No evidence of psychosis. Client Response/Progress/Benefit: [] Pt was an active participant in group discussions and activities. Due to being on virtually she did not physically participate in the ball activity however was attentive. Able to identify a SMART goal for the next week which was Take 2 days to participate in self-care (i.e warm bath) for the next week. She was able to identify barriers and obstacles to this goals and strategies to overcome these barriers. Benefited from group by being able to utilize SMART educate to create a goal. Narrative Note: [] This psychotherapy group was provided via telehealth using two-way, real-time interactive telecommunication technology between the patients and the provider.?The interactive telecommunication technology included audio and video.? ?The patient was offered telemedicine as an option for care delivery during the COVID-19 pandemic and consented to this option. ?Patient location: [place] ?Provider located at [facility]
== END 2020-08-24 15:16 | disposition home or self-care (01) ==
LOC: BHIOP 09:00
PROVIDERS: Referring Provider Psychiatry & Neurology Psychiatry; Visit Provider Psychiatry & Neurology Psychiatry
DX: F20.9 Schizophrenia, unspecified (principal); F33.2 Major depressive disorder, recurrent severe without psychotic features; F43.10 Post-traumatic stress disorder, unspecified; F42.9 Obsessive-compulsive disorder, unspecified; F12.90 Cannabis use, unspecified, uncomplicated; F44.5 Conversion disorder with seizures or convulsions
CPT/HCPCS: 99213; 99214; H0035; H2012; H2020; 90832; 90834

== ENCOUNTER 2020-08-30 13:31 | Outpatient (RCR) | payer MEDICAID, SELFPAY ==
--- NOTE | 2020-08-30 14:00 | BH.SGPN.GN ---
This psychotherapy group was provided via telehealth using two-way, real-time interactive telecommunication technology between the patients and the provider.?The interactive telecommunication technology included audio and video.? ?The patient was offered telemedicine as an option for care delivery during the COVID-19 pandemic and consented to this option. ?Patient location: [place] ?Provider located at [facility] Behaviors/Verbalizations/Mental Status: []Client alert and oriented, neatly dressed and groomed. Eye contact good. Motor activity appropriate. Speech within normal limits. Affect constricted, mood euthymic. Thoughts linear, logical, no signs of hallucinations or delusions. Client Response/Progress/Benefit: []Client responded well to session, checking in using GAPS. Client?s emotion today is ?uncertain but positive.? Client reported she has been using self-care a lot more this week and ?I can see an absolute difference.? Client states using self-care and reaching out to supports to cope with daily stressors. Client shared she is feeling anxious about Suman and the expenses that come with the holidays. Receptive of discussion on self-talk and its influence in maintaining long-term mental health stability. Contributed to strategies for improving effective creation and application of believable personal affirmations. Client?s affirmational statements were ?in this moment I am safe,? ?I am currently working on my life,? and ?I am a great mother.? Progress noted in client?s report of implementing self-care. Client to continue aftercare group to promote gains and further increase application of healthy coping skills. Narrative Note: []
--- NOTE | 2020-08-30 14:19 | BH.MTP ---
Master Treatment Plan - Patient Information Program Physician:: Dr. Kadi Florian Primary Therapist:: Kallie COSME - Psychiatric Diagnoses Psychiatric Diagnoses:: schizophrenia; OCD; major depressive disorder recurrent, severe without psychosis; PTSD; THC use disorder; history of polysubstance abuse; Diagnosis Code(s):: F 20.0 - Estimated LOS Estimated LOS (in weeks):: 12 Problem/Goal #1 - Problem/Goal #1 Stated Goal:: Client will maintain or see a reduction in symptoms AEB client score on the DSM 5 cross-cutting measure and improve client's daily functioning. - Objectives Objective #1 Stated Objective: Client will continue to consistently apply healthy coping skills to maintain progress made in IOP tx. Interventions: Through group therapy, client will review warning signs and triggers as well as healthy coping skills learned in IOP tx to successfully maintain gains while transitioning into outpatient therapy. Discharge Criteria: Client will have accomplished this goal when client's score on the DSM-5 cross-cutting measure has either maintained or reduced over a 12 week period. Target Date: 11/22/20 Review Date: 09/27/20 Status: open Objective #2 Stated Objective: Client will learn and utilize 2-3 maintenance strategies to prevent decompensation Interventions: Through group therapy, client will be provided with education on healthy maintenance behaviors, relapse prevention techniques, and healthy coping strategies. Discharge Criteria: Client will have accomplished this goal when can report using at least 2 maintenance skills to prevent decompensation. Target Date: 11/22/20 Review Date: 09/27/20 Status: open
--- NOTE | 2020-09-13 14:00 | BH.SGPN.GN ---
This psychotherapy group was provided via telehealth using two-way, real-time interactive telecommunication technology between the patients and the provider.?The interactive telecommunication technology included audio and video.? ?The patient was offered telemedicine as an option for care delivery during the COVID-19 pandemic and consented to this option. ?Patient location: [place] ?Provider located at [facility] Behaviors/Verbalizations/Mental Status: []Client alert and oriented, neatly dressed and groomed. Eye contact good. Motor activity appropriate. Speech within normal limits. Affect congruent to mood-tearful, mood overwhelmed. Thoughts linear, logical, no signs of hallucinations or delusions. Client Response/Progress/Benefit: []Client responded well to session, checked in using her GAPs worksheet. Client reports today has been both positive and difficult as client got triggered by a toxic person. Client stated she asked for extra support and is trying to be present during group, but still feels emotional. Client engaged well during the discussion of the components of self-compassion. Client connected with the benefits of self-compassion and agreed with peers that it is easier to be compassionate with others. Client participated in the activity of reframing a recent setback using self-compassion. Client used the example of being triggered by a toxic person today. Client reframed this situation using self-compassion and stated, ?I overcame a stressor and I forgive myself for having normal emotions.? Client appeared to benefit from practicing self-compassion and connecting with peers. Will continue aftercare to promote mood stability and reinforce healthy coping skills. Narrative Note: []
== END 2020-09-27 23:59 ==
LOC: BHOG 13:31
PROVIDERS: Referring Provider Psychiatry & Neurology Psychiatry; Visit Provider Psychiatry & Neurology Psychiatry
DX: F20.0 Paranoid schizophrenia (principal); F43.10 Post-traumatic stress disorder, unspecified; F12.90 Cannabis use, unspecified, uncomplicated
CPT/HCPCS: 90853

== ENCOUNTER 2020-10-04 14:00 | Outpatient (RCR) | payer MEDICAID, SELFPAY ==
--- NOTE | 2020-10-04 14:00 | BH.SGPN.GN ---
This psychotherapy group was provided via telehealth using two-way, real-time interactive telecommunication technology between the patients and the provider.?The interactive telecommunication technology included audio and video.? ?The patient was offered telemedicine as an option for care delivery during the COVID-19 pandemic and consented to this option. ?Patient location: [place] ?Provider located at [facility] Behaviors/Verbalizations/Mental Status: []Client alert and oriented, neatly dressed and groomed. Eye contact good. Motor activity appropriate. Speech within normal limits. Affect congruent, mood dysthymic and anxious. Thoughts racing no signs of hallucinations or delusions. Client Response/Progress/Benefit: []Client responded well to session, actively contributing. Client shared the past week has been stressful and client was tearful because client was vulnerable with an old friend and it did not electrode turner and finisher well. The group provided support and helped client combat negative thoughts. Client has been using self-compassion to cope with symptoms and stressors this week. Client contributed to the discussion on gratitude and its benefits. Client attentive during discussion of internal vs. external gratitude. Client receptive to participating in the group seven-day gratitude challenge. Client selected one gratitude reflection per day and stated she will implement this through writing ?when my daughter decides it?s mom?s quiet time.? Receptive to discussion on intentionality and self-accountability. Appeared to benefit from connecting with peers and practicing gratitude. Will continue IOP tx promote mood stability and reinforce healthy coping skills. Narrative Note: []
--- NOTE | 2020-10-11 14:00 | BH.SGPN.GN ---
This psychotherapy group was provided via telehealth using two-way, real-time interactive telecommunication technology between the patients and the provider.?The interactive telecommunication technology included audio and video.? ?The patient was offered telemedicine as an option for care delivery during the COVID-19 pandemic and consented to this option. ?Patient location: [place] ?Provider located at [facility] Behaviors/Verbalizations/Mental Status: []Client alert and oriented, casual appearance. Eye contact good. Motor activity appropriate. Speech within normal limits. Affect congruent. Mood euthymic. Thoughts linear, logical, no signs of hallucinations or delusions. Client Response/Progress/Benefit: []Pt engaged in session as evidenced by pt openly sharing thoughts and feelings, listening attentively to others, and providing input throughout. Pt stated she is feeling positive today despite having a relapse of experiencing 3 psuedoseizures last week. Pt stated she is thankful she has support and found it helpful to identify what she is grateful for in life. Pt engaged in discussion about benefits of self-care. Pt stated for her self-care plan for the week she will engage in: daily meditation, gratefulness, positive affirmations, setting boundaries, and daily personal hygiene. Pt seemed to benefit from creating a self-care plan to increase consistent use of self-care. Progress noted with pt bouncing back after being faced with a setback. Pt to continue aftercare group to continue use of healthy coping and prevent decompensation. Narrative Note: []
--- NOTE | 2020-10-18 14:00 | BH.SGPN.GN ---
This psychotherapy group was provided via telehealth using two-way, real-time interactive telecommunication technology between the patients and the provider.?The interactive telecommunication technology included audio and video.? ?The patient was offered telemedicine as an option for care delivery during the COVID-19 pandemic and consented to this option. ?Patient location: [place] ?Provider located at [facility] Behaviors/Verbalizations/Mental Status: []Client alert and oriented, neatly dressed and groomed. Eye contact good. Motor activity appropriate. Speech within normal limits. Affect congruent-tearful, mood dysthymic. Thoughts linear, logical, no signs of hallucinations or delusions. Client Response/Progress/Benefit: []Client responded well to session, provided input, and listened attentively to peers. Client was tearful during her check-in as client shared a triggering experience that made client feel ?crazy.? Client reports she is proud of herself for not personalizing as bad as normal and for using self-compassion. Client engaged in discussion on self-advocacy. Worked with group to identify the benefits of self-advocacy, as well as common barriers. Reviewed the personal bill of rights and shared belief that she has the right to follow her own beliefs and values. Worked with group to identify strategies to increase ability to advocate for oneself. Reported she wants to work on advocating for herself by reminding herself that she has the right to ask for what she wants. Client seemed to benefit from reviewing treatment progress and skill application, as well as learning about how to increase self-advocacy. Client to continue aftercare to combat negative thinking and reinforce healthy coping skills. Narrative Note: []
--- NOTE | 2020-10-25 02:05 | BH.SGPN.GN ---
This psychotherapy group was provided via telehealth using two-way, real-time interactive telecommunication technology between the patients and the provider. The interactive telecommunication technology included audio and video. The patient was offered telemedicine as an option for care delivery during the COVID-19 pandemic and consented to this option. Patient location: [place] Provider located at [facility] Behaviors/Verbalizations/Mental Status: []Client alert and oriented, casually dressed and groomed. Eye contact good. Motor activity appropriate. Speech within normal limits. Affect congruent. mood anxious and euthymic. Thoughts linear and logical. No signs of hallucinations or delusions. Client Response/Progress/Benefit: []Client responded well to session, checked in using her GAPs worksheet. Client reported feeling stressed by her daughter which increases isolation. Identified healthy coping skills to decrease stressors as breathing and mindfulness. Client engaged well during discussion of social support and noted benefits of different types of social support. Client appeared to benefit from psychoeducation on the four types of social support. Client was engaged as they contributed to how one may build social support. Identified her goal for the week was to increase her emotional support by being vulnerable and reaching out to her mother for help. Will continue aftercare IOP to challenge negative thoughts, reduce anxiety, and continue the use of healthy coping skills. Narrative Note: []
--- NOTE | 2020-11-08 18:33 | BH.DS_ITS ---
Discharge Summary - Demographics Date of Admission:: 08/30/20 Discharge Date: 11/08/20 Presenting Problems at Admission:: The Client is a 29-year-old female who referred herself to the [facility] behavioral health IOP program due to worsening symptoms of anxiety, depression and hallucinations. Client has a longstanding history of visual and auditory hallucinations occurring since she was 13 years old, though reports only recently accepting the schizophrenia diagnosis. She has a history of PTSD and anxiety. 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 Reports losing her job due to having pseudo-seizures and fainting spells at work secondary to anxiety. Additional stressors contributing to symptoms include client?s physical health issues and her mother?s decline in physical health. She endorsed feeling depressed with occasional hopelessness, isolation, no motivation, decreased sleep, low energy, decreased concentration, feeling guilty, passive thoughts that she would not care if she , increased hallucinations, increased rumination, daily panic attacks, and PTSD sx. Client reported inability to complete ADLs and take care of herself at her baseline since the increase in sx. Client's symptoms were impacting her ability to function at her baseline. At discharge from IOP client reported can recognize her warning signs earlier, has been isolating less and engaging more with her family, and reports a significant decline in both panic attack and psuedosiezures. Overall symptom reduction at IOP discharge was 51% per DSM 5. Discharge Diagnoses:: F20.0 schizophrenia; OCD; major depressive disorder recurrent, severe without psychosis; PTSD; THC use disorder; history of polysubstance abuse; Reason for Discharge:: Pt no showed several sessions and would not return phone calls from staff. - Treatment Progress During Treatment & Response: Progress has been variable throughout aftercare. Pt had reported experiencing some setbacks with pseudoseizures, however pt noted progress but not catastophizing and letting the setback impact other areas of her life. In last couple sessions of aftercare pt had reported increased isolation due to stress with daughter. Pt had consistent attendance prior to recently no-showing. Pt reported a medication issue adn once this was addressed by this program, pt stopped attending. Issues Still to be Addressed:: Benefit from continued work on reinforcing healthy coping, emotion regulation, challenging distorted thoughts and daily stress management activities. Discharge Recommendations/Instructions:: Pt is recommended to follow up with already established outpatient counselor through [facility] and outpatient psychiatrist at [facility]. Discharge Handout: Complete Discharge Handout with client on aftercare options and continuity of care.
== END 2020-10-25 16:00 | disposition home or self-care (01) ==
LOC: BHOG 14:00
PROVIDERS: Referring Provider Psychiatry & Neurology Psychiatry; Visit Provider Psychiatry & Neurology Psychiatry
DX: F20.0 Paranoid schizophrenia (principal); F42.9 Obsessive-compulsive disorder, unspecified; F43.10 Post-traumatic stress disorder, unspecified; F12.90 Cannabis use, unspecified, uncomplicated
CPT/HCPCS: 90853